=== PATIENT | female | born 1960 | race African-American/Black ===

== ENCOUNTER 2019-08-20 06:12 | Inpatient (IN) | payer BC ==
[2019-08-20] VITALS (11 sets, daily range): BP systolic 118–164; BP diastolic 67–99
[~2019-08-20] VITALS: Ht 167.6 cm; Wt 156.5 kg
[2019-08-20] MEDS ORDERED: AMLODIPINE BESY10 MG ORAL (06:26)
[2019-08-20] MEDS ORDERED: LOSARTAN POTAS100 MG ORAL (06:26)
[2019-08-20] MEDS ORDERED: LIPITOR80 MG ORAL (06:26)
--- NOTE | 2019-08-20 06:39 | Emergency Room Report ---
History of Present Illness General Chief Complaint: Abdominal Pain Source: Patient Present Illness HPI Patient presents with complaints of mid abdominal pain patient reports that since Saturday she has had multiple episodes of vomiting also reports that she has not had a bowel movement since Saturday denies any chest pain or shortness of breath patient reports that she has double hernias And feels that they are now more warm and tender to touch Denies any recent travel denies any rash pain is 5 out of 10 diffusely throughout the abdomen Allergies: Coded Allergies: CODEINE (Verified Allergy, Unknown, 08/20/19) Patient History Past Medical History: see triage record Reviewed Nursing Documentation: PMH: Agreed; PSxH: Agreed Nursing Documentation-PMH Hx Cardiac Problems: Yes Hx Hypertension: Yes Hx COPD: Yes - hx of P.E Hx Diabetes: Yes Hx Gastrointestinal Problems: Yes - hernia x 2 Review of Systems All Other Systems: negative except mentioned in HPI Physical Exam Vital Signs Date Time Temp Pulse Resp B/P (MAP) Pulse Ox O2 Delivery O2 Flow Rate FiO2 08/20/19 06:17 98.1 87 18 163/99 (120) 98 Room Air Sp02 EP Interpretation: reviewed, normal General Appearance: no apparent distress - However with trying to sit or move she has increased pain Head: normocephalic, atraumatic Eyes: bilateral eye PERRL, bilateral eye EOMI ENT: EOM grossly intact Neck: supple Respiratory: lungs clear, no respiratory distress Cardiovascular #1: regular rate, rhythm Gastrointestinal: other - Patient has a mid abdominal palpable hernia it does feel firm, also has umbilical hernia which is tender to touch and was not able to be fully reducible Genitourinary: no CVA tenderness Musculoskeletal: normal inspection Neurologic: alert, oriented x3 Skin: no rash Lymphatic: normal inspection Medical Decision Making Diagnostic Impression: Primary Impression: Small bowel obstruction ER Course Multiple differentials include but not limited to cholecystitis, bowel obstruction, ileus entertained Patient's clinical exam is concerning for possible bowel obstruction secondary to incarcerated hernia Patient was started on extensive blood work and imaging CT does reveal concerning findings of small bowel obstruction Patient has not thus far vomited in the emergency room Further hydration is provided pain medication Patient is admitted requiring emergency inpatient care 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 and 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 are 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 contacted Labs Test 08/20/19 07:30 08/21/19 05:20 White Blood Count 11.2 K/UL (4.8-10.8) 8.7 K/UL (4.8-10.8) Red Blood Count 6.61 M/UL (4.20-5.40) 6.07 M/UL (4.20-5.40) Hemoglobin 14.3 G/DL (12.0-16.0) 13.5 G/DL (12.0-16.0) Hematocrit 45.5 % (37.0-47.0) 42.8 % (37.0-47.0) Mean Corpuscular Volume 69 FL (80-99) 70 FL (80-99) Mean Corpuscular Hemoglobin 21.6 PG (27.0-31.0) 22.2 PG (27.0-31.0) Mean Corpuscular Hemoglobin Concent 31.4 G/DL (32.0-36.0) 31.6 G/DL (32.0-36.0) Red Cell Distribution Width 12.6 % (11.6-14.8) 12.6 % (11.6-14.8) Platelet Count 234 K/UL (150-450) 190 K/UL (150-450) Mean Platelet Volume 8.7 FL (6.5-10.1) 8.2 FL (6.5-10.1) Neutrophils (%) (Auto) 71.3 % (45.0-75.0) 82.2 % (45.0-75.0) Lymphocytes (%) (Auto) 20.5 % (20.0-45.0) 7.9 % (20.0-45.0) Monocytes (%) (Auto) 7.7 % (1.0-10.0) 9.2 % (1.0-10.0) Eosinophils (%) (Auto) 0.1 % (0.0-3.0) 0.0 % (0.0-3.0) Basophils (%) (Auto) 0.4 % (0.0-2.0) 0.7 % (0.0-2.0) Prothrombin Time 10.0 SEC (9.30-11.50) Prothromb Time International Ratio 0.9 (0.9-1.1) Activated Partial Thromboplast Time 25 SEC (23-33) 24 SEC (23-33) Urine Color Yellow Urine Appearance Clear Urine pH 6 (4.5-8.0) Urine Specific [place] 1.015 (1.005-1.035) Urine Protein 3+ (NEGATIVE) Urine Glucose (UA) Negative (NEGATIVE) Urine Ketones 1+ (NEGATIVE) Urine Blood Negative (NEGATIVE) Urine Nitrite Negative (NEGATIVE) Urine Bilirubin Negative (NEGATIVE) Urine Urobilinogen Normal MG/DL (0.0-1.0) Urine Leukocyte Esterase Negative (NEGATIVE) Urine RBC 2-4 /HPF (0 - 2) Urine WBC 2-4 /HPF (0 - 2) Urine Squamous Epithelial Cells Many /LPF (NONE/OCC) Urine Amorphous Sediment Moderate /LPF (NONE) Urine Bacteria Few /HPF (NONE) Sodium Level 137 MMOL/L (136-145) 138 MMOL/L (136-145) Potassium Level 4.0 MMOL/L (3.5-5.1) 3.2 MMOL/L (3.5-5.1) Chloride Level 99 MMOL/L (98-107) 100 MMOL/L (98-107) Carbon Dioxide Level 31 MMOL/L (21-32) 24 MMOL/L (21-32) Anion Gap 8 mmol/L (5-15) 14 mmol/L (5-15) Blood Urea Nitrogen 13 mg/dL (7-18) 24 mg/dL (7-18) Creatinine 1.0 MG/DL (0.55-1.30) 2.7 MG/DL (0.55-1.30) Estimat Glomerular Filtration Rate > 60 mL/min (>60) 21.9 mL/min (>60) Glucose Level 159 MG/DL (74-106) 147 MG/DL (74-106) Calcium Level 9.7 MG/DL (8.5-10.1) 8.6 MG/DL (8.5-10.1) Total Bilirubin 0.4 MG/DL (0.2-1.0) 0.9 MG/DL (0.2-1.0) Aspartate Amino Transf (AST/SGOT) 15 U/L (15-37) 21 U/L (15-37) Alanine Aminotransferase (ALT/SGPT) 16 U/L (12-78) 17 U/L (12-78) Alkaline Phosphatase 112 U/L (46-116) 90 U/L (46-116) Troponin I 0.000 ng/mL (0.000-0.056) Total Protein 9.2 G/DL (6.4-8.2) 7.7 G/DL (6.4-8.2) Albumin 3.4 G/DL (3.4-5.0) 3.0 G/DL (3.4-5.0) Globulin 5.8 g/dL 4.7 g/dL Albumin/Globulin Ratio 0.6 (1.0-2.7) 0.6 (1.0-2.7) Lipase 51 U/L (73-393) 92 U/L (73-393) Erythrocyte Sedimentation Rate 18 MM/HR (0-30) Phosphorus Level 4.3 MG/DL (2.5-4.9) Magnesium Level 3.0 MG/DL (1.8-2.4) C-Reactive Protein, Quantitative 13.8 mg/dL (0.00-0.90) Amylase Level 205 U/L (25-115) Rhythm Strip Diag. Results EP Interpretation: yes Rate: 90 Rhythm: NSR, no PVC's, no ectopy CT/MRI/US Diagnostic Results CT/MRI/US Diagnostic Results : Impression CT abdomen pelvisImpression: High-grade small bowel obstruction due to a ventral hernia. Note that this is the more inferior of 2 ventral hernias. The inferior hernia contains 2 small bowel loops, one of which is the obstructed loop. The more cephalad hernia located immediately adjacent contains a loop of small bowel and a knuckle of transverse colon. This is nonobstructive Last Vital Signs Date Time Temp Pulse Resp B/P (MAP) Pulse Ox O2 Delivery O2 Flow Rate FiO2 08/20/19 06:17 98.1 87 18 163/99 (120) 98 Room Air Status: improved Disposition: ADMITTED INPATIENT Condition: Serious Brittany Alaniz DO Aug 20, 2019 06:39
[2019-08-20] MEDS ORDERED: Metoclopramide 10mg/2ml Inj IVP ONE (06:45)
[2019-08-20 07:38] LABS: BASOPHILS % (AUTO) 0.4 % (0.0-2.0); EOSINOPHILS % (AUTO) 0.1 % (0.0-3.0); HEMATOCRIT 45.5 % (37.0-47.0); HEMOGLOBIN 14.3 G/DL (12.0-16.0); LYMPHOCYTES % (AUTO) 20.5 % (20.0-45.0); MEAN CORPUSCULAR VOLUME 69 FL (80-99); MONOCYTES % (AUTO) 7.7 % (1.0-10.0); NEUTROPHILS % (AUTO) 71.3 % (45.0-75.0); PLATELET COUNT 234 K/UL (150-450); RED BLOOD COUNT 6.61 M/UL (4.20-5.40); RED CELL DISTRIBUTION WIDTH 12.6 % (11.6-14.8); WHITE BLOOD COUNT 11.2 K/UL (4.8-10.8)
[2019-08-20 07:47] LABS: ANION GAP 8 mmol/L (5-15); BLOOD UREA NITROGEN 13 mg/dL (7-18); CALCIUM 9.7 MG/DL (8.5-10.1); CARBON DIOXIDE 31 MMOL/L (21-32); CHLORIDE 99 MMOL/L (98-107); SODIUM 137 MMOL/L (136-145)
[2019-08-20 07:51] LABS: ALANINE AMINOTRANSFERASE 16 U/L (12-78); ALBUMIN 3.4 G/DL (3.4-5.0); ALBUMIN/GLOBULIN RATIO 0.6 (1.0-2.7); ALKALINE PHOSPHATASE 112 U/L (46-116); ASPARTATE AMINO TRANSFERASE 15 U/L (15-37); BILIRUBIN,TOTAL 0.4 MG/DL (0.2-1.0)
[2019-08-20 07:52] LABS: INR 0.9 (0.9-1.1)
[2019-08-20 08:20] LABS: APPEARANCE,URINE CLEAR; COLOR,URINE YELLOW; PH,URINE 6 (4.5-8.0); PROTEIN,URINE 3+ (NEGATIVE)
[2019-08-20 08:21] LABS: BILIRUBIN, URINE NEGATIVE (NEGATIVE); GLUCOSE, URINE (UA) NEGATIVE (NEGATIVE); KETONES,URINE 1+ (NEGATIVE); LEUKOCYTE ESTERASE ,URINE NEGATIVE (NEGATIVE); NITRITE,URINE NEGATIVE (NEGATIVE); UROBILINOGEN,URINE NORMAL MG/DL (0.0-1.0)
[2019-08-20] MEDS ORDERED: Morphine Sulfate 4mg/ml Inj (IV USE ONLY) IVP ONE (08:30)
--- NOTE | 2019-08-20 09:48 | Diagnostic Imaging Report ---
Indication: Mid abdominal pain Technique: Spiral acquisitions obtained through the abdomen and pelvis. Patient given oral contrast No IV contrast utilized, per referring physician request.. Multiplanar reconstructions were generated. Total dose length product 1897 mGycm. CTDIvol(s) 35 mGy. Dose reduction achieved using automated exposure control Comparison: None Findings: There are 2 ventral hernias. The more inferior of the 2, which appears to be periumbilical, contains 2 several loops of small bowel. The small bowel leading into one of the contained loops is dilated and the exiting small bowel is nondilated. This loop also contains dilated small bowel within the hernia. The other loop of small bowel within the hernia appears nonobstructed. A second hernia located more cephalad contains transverse colon as well as a separate loop of small bowel, appears to be nonobstructive. Ingested contrast has only traversed a small distance into the duodenum. There is colonic diverticulosis. No evidence of acute diverticulitis. The appendix is normal. No free or loculated intraperitoneal gas or fluid. Distal esophagus, stomach, duodenum are unremarkable. The lack of IV contrast limits assessment of solid organs. The liver, gallbladder, bile ducts, pancreas, spleen, adrenals, kidneys are unremarkable. No retroperitoneal or mesenteric mass or adenopathy. The uterus is markedly enlarged, contains calcifications consistent with degenerated fibroids. No adnexal mass. The bones demonstrate degenerative changes of the lumbosacral junction. The included lung bases demonstrate posterior dependent atelectatic changes. Impression: High-grade small bowel obstruction due to a ventral hernia. Note that this is the more inferior of 2 ventral hernias. The inferior hernia contains 2 small bowel loops, one of which is the obstructed loop. The more cephalad hernia located immediately adjacent contains a loop of small bowel and a knuckle of transverse colon. This is nonobstructive Colonic diverticulosis. No evidence of diverticulitis Enlarged fibroid uterus Incidental findings of degenerative lumbosacral spondylosis, posterior pulmonary dependent atelectatic changes Findings discussed by phone with Dr. Alaniz at the time of interpretation The CT scanner at [facility] is accredited by the [employer] and the scans are performed using protocols designed to limit radiation exposure to as low as reasonably achievable to attain images of sufficient resolution adequate for diagnostic evaluation.
[2019-08-20] MEDS ORDERED: DiphenhydrAMINE 25mg Tab ORAL PRN ×2 (12:30→18:45)
[2019-08-20] MEDS ORDERED: Nitroglycerin Subl 0.4mg tab SL PRN (12:30)
[2019-08-20] MEDS ORDERED: Metoclopramide 10mg/2ml Inj IVP PRN (12:30)
[2019-08-20] MEDS ORDERED: Miralax 17gm pkt ORAL PRN (12:30)
--- NOTE | 2019-08-20 12:42 | Consultation ---
History of Present Illness General Date patient seen: Aug 20, 2019 Chief Complaint: Abdominal Pain Present Illness HPI 59 year old female with hx of HTN, DM, PE, morbid obesity presented to ER with complaints of mid abdominal pain patient and multiple episodes of vomiting since two days ago. She has not had a bowel movement since Saturday. She denied any chest pain or shortness of breath. Allergies: Coded Allergies: CODEINE (Verified Allergy, Unknown, 08/20/19) Medication History Scheduled Atorvastatin (Lipitor), 40 MG ORAL BEDTIME, (Reported) Losartan Potassium (Losartan Potassium), 100 MG ORAL DAILY, (Reported) Scheduled PRN Amlodipine Besylate* (Amlodipine Besylate*), 10 MG ORAL DAILY PRN for For High Blood Pressure, (Reported) Patient History Healthcare decision maker Resuscitation status Advanced Directive on File Yes Past Medical/Surgical History Past Medical/Surgical History: (1) Diabetes mellitus (2) Hx pulmonary embolism (3) History of hypertension Review of Systems All Other Systems: negative except mentioned in HPI Physical Exam General Appearance: WD/WN Lines, tubes and drains: peripheral HEENT: normocephalic Neck: non-tender, normal alignment Respiratory/Chest: chest wall non-tender, lungs clear, normal breath sounds Breasts: no masses Cardiovascular/Chest: normal peripheral pulses, normal rate Abdomen: normal bowel sounds Genitourinary/Rectal: normal genital exam Extremities: normal range of motion Skin Exam: normal pigmentation 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 normal Last 24 Hour Vital Signs Date Time Temp Pulse Resp B/P (MAP) Pulse Ox O2 Delivery O2 Flow Rate FiO2 08/20/19 10:50 98.1 89 21 148/86 98 Room Air 08/20/19 10:29 98.1 89 21 148/86 98 Room Air 08/20/19 08:39 98.1 89 21 164/98 99 Room Air 08/20/19 06:30 98.1 87 18 163/99 98 Room Air 08/20/19 06:30 87 18 Room Air 08/20/19 06:17 98.1 87 18 163/99 (120) 98 Room Air Intake and Output 08/19/19 08/20/19 19:00 07:00 Intake Total 0 ml Balance 0 ml Intake Oral 0 ml # Voids 1 Laboratory Tests Test 08/20/19 07:30 White Blood Count 11.2 K/UL (4.8-10.8) H Red Blood Count 6.61 M/UL (4.20-5.40) H Hemoglobin 14.3 G/DL (12.0-16.0) Hematocrit 45.5 % (37.0-47.0) Mean Corpuscular Volume 69 FL (80-99) L Mean Corpuscular Hemoglobin 21.6 PG (27.0-31.0) L Mean Corpuscular Hemoglobin Concent 31.4 G/DL (32.0-36.0) L Red Cell Distribution Width 12.6 % (11.6-14.8) Platelet Count 234 K/UL (150-450) Mean Platelet Volume 8.7 FL (6.5-10.1) Neutrophils (%) (Auto) 71.3 % (45.0-75.0) Lymphocytes (%) (Auto) 20.5 % (20.0-45.0) Monocytes (%) (Auto) 7.7 % (1.0-10.0) Eosinophils (%) (Auto) 0.1 % (0.0-3.0) Basophils (%) (Auto) 0.4 % (0.0-2.0) Prothrombin Time 10.0 SEC (9.30-11.50) Prothromb Time International Ratio 0.9 (0.9-1.1) Activated Partial Thromboplast Time 25 SEC (23-33) Urine Color Yellow Urine Appearance Clear Urine pH 6 (4.5-8.0) Urine Specific [place] 1.015 (1.005-1.035) Urine Protein 3+ (NEGATIVE) H Urine Glucose (UA) Negative (NEGATIVE) Urine Ketones 1+ (NEGATIVE) H Urine Blood Negative (NEGATIVE) Urine Nitrite Negative (NEGATIVE) Urine Bilirubin Negative (NEGATIVE) Urine Urobilinogen Normal MG/DL (0.0-1.0) Urine Leukocyte Esterase Negative (NEGATIVE) Urine RBC 2-4 /HPF (0 - 2) H Urine WBC 2-4 /HPF (0 - 2) Urine Squamous Epithelial Cells Many /LPF (NONE/OCC) H Urine Amorphous Sediment Moderate /LPF (NONE) H Urine Bacteria Few /HPF (NONE) Sodium Level 137 MMOL/L (136-145) Potassium Level 4.0 MMOL/L (3.5-5.1) Chloride Level 99 MMOL/L (98-107) Carbon Dioxide Level 31 MMOL/L (21-32) Anion Gap 8 mmol/L (5-15) Blood Urea Nitrogen 13 mg/dL (7-18) Creatinine 1.0 MG/DL (0.55-1.30) Estimat Glomerular Filtration Rate > 60 mL/min (>60) Glucose Level 159 MG/DL (74-106) H Calcium Level 9.7 MG/DL (8.5-10.1) Total Bilirubin 0.4 MG/DL (0.2-1.0) Aspartate Amino Transf (AST/SGOT) 15 U/L (15-37) Alanine Aminotransferase (ALT/SGPT) 16 U/L (12-78) Alkaline Phosphatase 112 U/L (46-116) Troponin I 0.000 ng/mL (0.000-0.056) Total Protein 9.2 G/DL (6.4-8.2) H Albumin 3.4 G/DL (3.4-5.0) Globulin 5.8 g/dL Albumin/Globulin Ratio 0.6 (1.0-2.7) L Lipase 51 U/L (73-393) L Height (Feet): 5 Height (Inches): 8.00 Weight (Pounds): 350 Medications Current Medications Medications (Trade) Dose Ordered Sig/Juan Route PRN Reason Start Time Stop Time Status Last Admin Dose Admin Amlodipine Besylate (Norvasc) 10 mg DAILY PRN ORAL For High Blood Pressure 08/20/19 12:30 09/19/19 12:29 UNV Atorvastatin Calcium (Lipitor) 40 mg BEDTIME ORAL 08/20/19 21:00 09/19/19 20:59 Barium Sulfate (Readi-Cat 2) 450 ml NOW PRN ORAL Radiology Procedure 08/20/19 06:45 08/22/19 06:35 Losartan Potassium (Cozaar) 100 mg DAILY ORAL 08/21/19 09:00 09/20/19 08:59 Assessment/Plan Problem List: (1) Ileus ICD Codes: K56.7 - Ileus, unspecified SNOMED: 458893176 (2) Refractory nausea and vomiting ICD Codes: R11.2 - Nausea with vomiting, unspecified SNOMED: 50938671 (3) Hx pulmonary embolism ICD Codes: Z86.711 - Personal history of pulmonary embolism SNOMED: 464541771 (4) History of hypertension ICD Codes: Z86.79 - Personal history of other diseases of the circulatory system SNOMED: 968685868 (5) Diabetes mellitus ICD Codes: E11.9 - Type 2 diabetes mellitus without complications SNOMED: 47228773 Assessment/Plan: NPO iv fluids Surgery consult symptomatic treatment dvt prophylaxis dopple of legs b/o hx of PE sliding scale Jamil Green MD Aug 20, 2019 12:42
[2019-08-20] MEDS: D5 1/2NS 1,000 ML IV SCH (12:47)
[2019-08-20] MEDS ORDERED: Morphine Sulfate 4mg/ml Inj (IV USE ONLY) IVP PRN (13:30)
[2019-08-20] MEDS ORDERED: Morphine Sulfate 2mg/ml Inj(IV/IM USE ONLY) IVP PRN (13:30)
[2019-08-20] MEDS ORDERED: Bacitracin 50000 Units Vial ONE (15:25)
[2019-08-20] MEDS ORDERED: LR 1000ml 1,000 ML IVLG SCH (15:26)
--- NOTE | 2019-08-20 15:27 | Anethesia Preoperative Eval ---
Anesthesia Pre-op PMH/ROS General Date of Evaluation: Aug 20, 2019 Time of Evaluation: 15:36 Anesthesiologist: Trace ASA Score: ASA 3 Mallampati Score Class I : Soft palate, uvula, fauces, pillars visible Class II: Soft palate, uvula, fauces visible Class III: Soft palate, base of uvula visible Class IV: Only hard plate visible Mallampati Classification: Class III Surgeon: Magda Diagnosis: Abd Pain Surgical Procedure: Laparoscopic Ventral Hernia Repair Anesthesia History: none Family History: no anesthesia problems Allergies: Coded Allergies: CODEINE (Verified Allergy, Unknown, 08/20/19) Medications: see eMAR Patient NPO?: Yes NPO Date: Aug 20, 2019 NPO Time: 0000 Past Medical History Cardiovascular: Reports: HTN Pulmonary: Reports: other - PE Endocrine: Reports: DM Other: obesity - Morbid BMI 58 Anesthesia Pre-op Phys. Exam Physician Exam Last Vital Signs Date Time Temp Pulse Resp B/P (MAP) Pulse Ox O2 Delivery O2 Flow Rate FiO2 08/20/19 14:16 98.1 08/20/19 12:46 89 148/86 08/20/19 12:41 Room Air 08/20/19 10:50 21 98 Constitutional: NAD Neurologic: CN 2-12 intact Cardiovascular: RRR Respiratory: CTA Gastrointestinal: S/NT/ND Airway Exam Mallampati Score: Class III MO: limited ROM: limited Teeth: missing Dentures: upper, lower Anesthesia Pre-op A/P Labs Hematology Test 08/20/19 07:30 White Blood Count 11.2 K/UL (4.8-10.8) H Red Blood Count 6.61 M/UL (4.20-5.40) H Hemoglobin 14.3 G/DL (12.0-16.0) Hematocrit 45.5 % (37.0-47.0) Mean Corpuscular Volume 69 FL (80-99) L Mean Corpuscular Hemoglobin 21.6 PG (27.0-31.0) L Mean Corpuscular Hemoglobin Concent 31.4 G/DL (32.0-36.0) L Red Cell Distribution Width 12.6 % (11.6-14.8) Platelet Count 234 K/UL (150-450) Mean Platelet Volume 8.7 FL (6.5-10.1) Neutrophils (%) (Auto) 71.3 % (45.0-75.0) Lymphocytes (%) (Auto) 20.5 % (20.0-45.0) Monocytes (%) (Auto) 7.7 % (1.0-10.0) Eosinophils (%) (Auto) 0.1 % (0.0-3.0) Basophils (%) (Auto) 0.4 % (0.0-2.0) Coagulation Test 08/20/19 07:30 Prothrombin Time 10.0 SEC (9.30-11.50) Prothromb Time International Ratio 0.9 (0.9-1.1) Activated Partial Thromboplast Time 25 SEC (23-33) Chemistry Test 08/20/19 07:30 Sodium Level 137 MMOL/L (136-145) Potassium Level 4.0 MMOL/L (3.5-5.1) Chloride Level 99 MMOL/L (98-107) Carbon Dioxide Level 31 MMOL/L (21-32) Anion Gap 8 mmol/L (5-15) Blood Urea Nitrogen 13 mg/dL (7-18) Creatinine 1.0 MG/DL (0.55-1.30) Estimat Glomerular Filtration Rate > 60 mL/min (>60) Glucose Level 159 MG/DL (74-106) H Calcium Level 9.7 MG/DL (8.5-10.1) Total Bilirubin 0.4 MG/DL (0.2-1.0) Aspartate Amino Transf (AST/SGOT) 15 U/L (15-37) Alanine Aminotransferase (ALT/SGPT) 16 U/L (12-78) Alkaline Phosphatase 112 U/L (46-116) Troponin I 0.000 ng/mL (0.000-0.056) Total Protein 9.2 G/DL (6.4-8.2) H Albumin 3.4 G/DL (3.4-5.0) Globulin 5.8 g/dL Albumin/Globulin Ratio 0.6 (1.0-2.7) L Lipase 51 U/L (73-393) L Risk Assessment & Plan Assessment: ASA 3E Plan: GA, SED, GlideScope Go Status Change Before Surgery: No Pre-Antibiotics Dru Grams , 3.375 Grams Zosyn IV Given Within 1 Hr of Incision: Yes Time Given: 16:01 Issa Woodward MD Aug 20, 2019 15:27
[2019-08-20] MEDS ORDERED: LORazepam Inj 2mg/ml 1ml IV PRN (15:30)
[2019-08-20] MEDS ORDERED: Midazolam 2mg/2ml Inj IVP PRN (15:30)
[2019-08-20] MEDS ORDERED: DiphenhydrAMINE 50mg/ml Inj IVP PRN (15:30)
[2019-08-20] MEDS ORDERED: Propofol 200mg/20ml IV ONE (15:30)
[2019-08-20] MEDS ORDERED: Atropine Sulfate 0.4mg/ml inj IVP PRN (15:30)
[2019-08-20] MEDS ORDERED: Meperidine 25mg/0.5ml Inj (FOR RIGORS ONLY) IV PRN (15:30)
[2019-08-20] MEDS ORDERED: Sterile Water Irrig 1000ml IRRIG ONE (15:30)
[2019-08-20] MEDS ORDERED: Acetaminophen (Non formulary) 100 ML IV ONE (15:30)
[2019-08-20] MEDS ORDERED: fentaNYL 100 mcg/2 mL IV PRN (15:30)
[2019-08-20] MEDS ORDERED: Labetalol 5mg/ml 20ml vial IV PRN (15:30)
[2019-08-20] MEDS ORDERED: LR 1000ml ONE (15:30)
--- NOTE | 2019-08-20 15:30 | Diagnostic Imaging Report ---
Indication: Leg pain Technique: Grayscale and duplex images of the bilateral lower extremity veins Comparison: None Findings: Exam is somewhat limited due to patient body habitus; visualization of the femoral vein was not optimal. Bilaterally, grayscale and duplex images demonstrate no evidence of intraluminal thrombus. Normal phasic Doppler waveforms, demonstrating normal augmentation response and no evidence of valvular insufficiency. Greater saphenous vein(s) and tibial veins are patent. Normal compressibility. Impression: Negative for evidence of lower extremity deep venous thrombosis bilaterally Somewhat limited exam, as described
--- NOTE | 2019-08-20 15:42 | Consultation ---
History of Present Illness General Date patient seen: Aug 20, 2019 Reason for Hospitalization: Abdominal Pain Present Illness HPI This is a very pleasant 59 year old female with history of diabetes hypertension severe morbid obesity BMI 56 who presented to [facility] complaining of worsening abdominal pain nausea and emesis for 2 days. Patient states she was well 3 days ago but 2 days ago was at work and began to develop normal discomfort followed by nausea and multiple bouts of nonbloody emesis. She has been unwell since and came in for evaluation at which time was identified to have leukocytosis and CT scan consistent with incarcerated ventral hernia causing high-grade bowel obstruction. Patient was admitted for further care and management surgery was called to evaluate and assist with care. Patient seen, [place], chart reviewed. Patient states that she was having severe 8 out of 10-10 out of 10 pain but was recently given narcotic pain medication and feels little bit more comfortable currently 6 out of 10. no prior episodes. no bm. no flatus for 2 days Allergies: Coded Allergies: CODEINE (Verified Allergy, Unknown, 08/20/19) Medication History Scheduled Atorvastatin (Lipitor), 40 MG ORAL BEDTIME, (Reported) Losartan Potassium (Losartan Potassium), 100 MG ORAL DAILY, (Reported) Scheduled PRN Amlodipine Besylate* (Amlodipine Besylate*), 10 MG ORAL DAILY PRN for For High Blood Pressure, (Reported) Patient History History Provided By: Patient Healthcare decision maker sister: Meenakshi: [phone] Resuscitation status Full Code Advanced Directive on File Yes Past Medical/Surgical History Past Medical/Surgical History: (1) Incarcerated ventral hernia (2) Small bowel obstruction (3) Diabetes mellitus (4) History of hypertension (5) Hx pulmonary embolism (6) Ileus (7) Refractory nausea and vomiting Review of Systems Review of Symptoms General ROS: no weight loss or fever Psychological ROS: no depression or mood changes, no memory loss Ophthalmic ROS: no visual changes or eye irritation ENT ROS: no nasal congestion, hearing loss, dizziness Allergy and Immunology ROS: no allergic symptoms or urticaria Hematological and Lymphatic ROS: no swollen glands, unusual bleeding or bruising Endocrine ROS: no polyuria, polydipsia, weight changes, temperature intolerance Respiratory ROS: no cough, shortness of breath, or wheezing Cardiovascular ROS: no chest pain or dyspnea on exertion Gastrointestinal ROS: abdominal pain, no bright red blood in stool. Musculoskeletal ROS: no myalgias or arthralgias Neurological ROS: no TIA or stroke symptoms Dermatological ROS: no new or changing skin lesions, rashes or pruritis Physical Exam Physical Exam General appearance: alert, cooperative, no distress, appears stated age Head: Normocephalic, without obvious abnormality, atraumatic Eyes: conjunctivae/corneas clear. PERRL, EOM's intact. Fundi benign Throat: Lips, mucosa, and tongue normal. Teeth and gums normal Neck: supple, symmetrical, trachea midline, no adenopathy, thyroid: not enlarged, symmetric, no tenderness/mass/nodules, no carotid bruit and no JVD Lungs: clear to auscultation bilaterally Heart: regular rate and rhythm, S1, S2 normal, no murmur, click, rub or gallop Abdomen: soft, tender. decreased bowel sounds, distended, non reducible ventral hernia Extremities: extremities normal, atraumatic, no cyanosis or edema Pulses: 2+ and symmetric Skin: Skin color, texture, turgor normal. No rashes or lesions Neurologic: Grossly normal Last 24 Hour Vital Signs Date Time Temp Pulse Resp B/P (MAP) Pulse Ox O2 Delivery O2 Flow Rate FiO2 08/20/19 14:16 98.1 08/20/19 12:46 89 148/86 08/20/19 12:41 Room Air 08/20/19 10:50 98.1 89 21 148/86 98 Room Air 08/20/19 10:29 98.1 89 21 148/86 98 Room Air 08/20/19 08:39 98.1 89 21 164/98 99 Room Air 08/20/19 06:30 98.1 87 18 163/99 98 Room Air 08/20/19 06:30 87 18 Room Air 08/20/19 06:17 98.1 87 18 163/99 (120) 98 Room Air Intake and Output 08/19/19 08/20/19 19:00 07:00 Intake Total 0 ml Balance 0 ml Intake Oral 0 ml # Voids 1 Laboratory Tests Test 08/20/19 07:30 White Blood Count 11.2 K/UL (4.8-10.8) H Red Blood Count 6.61 M/UL (4.20-5.40) H Hemoglobin 14.3 G/DL (12.0-16.0) Hematocrit 45.5 % (37.0-47.0) Mean Corpuscular Volume 69 FL (80-99) L Mean Corpuscular Hemoglobin 21.6 PG (27.0-31.0) L Mean Corpuscular Hemoglobin Concent 31.4 G/DL (32.0-36.0) L Red Cell Distribution Width 12.6 % (11.6-14.8) Platelet Count 234 K/UL (150-450) Mean Platelet Volume 8.7 FL (6.5-10.1) Neutrophils (%) (Auto) 71.3 % (45.0-75.0) Lymphocytes (%) (Auto) 20.5 % (20.0-45.0) Monocytes (%) (Auto) 7.7 % (1.0-10.0) Eosinophils (%) (Auto) 0.1 % (0.0-3.0) Basophils (%) (Auto) 0.4 % (0.0-2.0) Prothrombin Time 10.0 SEC (9.30-11.50) Prothromb Time International Ratio 0.9 (0.9-1.1) Activated Partial Thromboplast Time 25 SEC (23-33) Urine Color Yellow Urine Appearance Clear Urine pH 6 (4.5-8.0) Urine Specific [place] 1.015 (1.005-1.035) Urine Protein 3+ (NEGATIVE) H Urine Glucose (UA) Negative (NEGATIVE) Urine Ketones 1+ (NEGATIVE) H Urine Blood Negative (NEGATIVE) Urine Nitrite Negative (NEGATIVE) Urine Bilirubin Negative (NEGATIVE) Urine Urobilinogen Normal MG/DL (0.0-1.0) Urine Leukocyte Esterase Negative (NEGATIVE) Urine RBC 2-4 /HPF (0 - 2) H Urine WBC 2-4 /HPF (0 - 2) Urine Squamous Epithelial Cells Many /LPF (NONE/OCC) H Urine Amorphous Sediment Moderate /LPF (NONE) H Urine Bacteria Few /HPF (NONE) Sodium Level 137 MMOL/L (136-145) Potassium Level 4.0 MMOL/L (3.5-5.1) Chloride Level 99 MMOL/L (98-107) Carbon Dioxide Level 31 MMOL/L (21-32) Anion Gap 8 mmol/L (5-15) Blood Urea Nitrogen 13 mg/dL (7-18) Creatinine 1.0 MG/DL (0.55-1.30) Estimat Glomerular Filtration Rate > 60 mL/min (>60) Glucose Level 159 MG/DL (74-106) H Calcium Level 9.7 MG/DL (8.5-10.1) Total Bilirubin 0.4 MG/DL (0.2-1.0) Aspartate Amino Transf (AST/SGOT) 15 U/L (15-37) Alanine Aminotransferase (ALT/SGPT) 16 U/L (12-78) Alkaline Phosphatase 112 U/L (46-116) Troponin I 0.000 ng/mL (0.000-0.056) Total Protein 9.2 G/DL (6.4-8.2) H Albumin 3.4 G/DL (3.4-5.0) Globulin 5.8 g/dL Albumin/Globulin Ratio 0.6 (1.0-2.7) L Lipase 51 U/L (73-393) L Height (Feet): 5 Height (Inches): 6.00 Weight (Pounds): 347 Medications Current Medications Medications (Trade) Dose Ordered Sig/Juan Route PRN Reason Start Time Stop Time Status Last Admin Dose Admin Acetaminophen 100 ml @ 400 mls/hr NOW ONCE IV 08/20/19 15:30 08/20/19 15:44 Acetaminophen (Tylenol) 650 mg Q4H PRN ORAL fever 08/20/19 12:30 09/19/19 12:29 Al Hydroxide/Mg Hydroxide (Mylanta) 15 ml Q1H PRN ORAL gi upset 08/20/19 15:30 08/20/19 23:59 Amlodipine Besylate (Norvasc) 10 mg DAILY ORAL 08/20/19 12:25 09/19/19 12:24 08/20/19 12:46 Atorvastatin Calcium (Lipitor) 40 mg BEDTIME ORAL 08/20/19 21:00 09/19/19 20:59 Atropine Sulfate (Atropine 0.4mg/ ml) 0.5 mg Q5M PRN IVP HR<40 08/20/19 15:30 08/20/19 23:59 Barium Sulfate (Readi-Cat 2) 450 ml NOW PRN ORAL Radiology Procedure 08/20/19 06:45 08/22/19 06:35 Dextrose (Dextrose 50%) 25 ml Q30M PRN IV Hypoglycemia 08/20/19 12:45 09/19/19 12:44 Dextrose (Dextrose 50%) 50 ml Q30M PRN IV Hypoglycemia 08/20/19 12:45 09/19/19 12:44 Dextrose/Sodium Chloride 1,000 ml @ 75 mls/hr [id number] IV 08/20/19 12:23 09/19/19 12:22 08/20/19 12:47 Diphenhydramine HCl (Benadryl) 25 mg Q15M PRN IVP Itching 08/20/19 15:30 08/20/19 23:59 Diphenhydramine HCl (Benadryl) 25 mg Q6H PRN ORAL Itching/Pruritis 08/20/19 12:30 09/19/19 12:29 Fentanyl Citrate (Sublimaze 100 mcg/2 mL) 25 mcg Q10M PRN IV Moderate Pain (Pain Scale 4-6) 08/20/19 15:30 08/20/19 23:59 Heparin Sodium (Porcine) (Heparin 5000 units/ml) 5,000 units EVERY 12 HOURS SUBQ 08/20/19 21:00 10/04/19 20:59 Hydralazine HCl (Apresoline) 5 mg Q30M PRN IV SBP>160 / DBP>90 08/20/19 15:30 08/20/19 23:59 Labetalol HCl (Normodyne) 5 mg Q10M PRN IV SBP>160 / DBP>90 08/20/19 15:30 08/20/19 23:59 Lactated Ringer's 1,000 ml @ 10 mls/hr Q24H IVLG 08/20/19 15:26 08/20/19 17:25 Lorazepam (Ativan 2mg/ml 1ml) 1 mg Q15M PRN IV For Anxiety 08/20/19 15:30 08/20/19 23:59 Losartan Potassium (Cozaar) 100 mg Q24H ORAL 08/20/19 20:00 09/19/19 19:59 Meperidine HCl (Demerol) 25 mg Q5M PRN IV SHIVERING.MAY REPEAT X 1 08/20/19 15:30 08/20/19 23:59 Metoclopramide HCl (Reglan) 10 mg Q6H PRN IVP servere nauasea 08/20/19 12:30 09/19/19 12:29 Midazolam HCl (Versed 2mg/2ml vial) 1 mg Q15M PRN IVP For Anxiety 08/20/19 15:30 08/20/19 23:59 Morphine Sulfate (Morphine Sulfate) 2 mg Q4H PRN IVP PAIN 4-6 08/20/19 13:30 08/27/19 13:29 08/20/19 13:46 Morphine Sulfate (Morphine Sulfate) 4 mg Q4H PRN IVP Severe Breakthru Pain (>7) 08/20/19 13:30 08/27/19 13:29 Nitroglycerin (Ntg) 0.4 mg Q5M X 3 DOSES PRN SL Prn Chest Pain 08/20/19 12:30 09/19/19 12:29 Ondansetron HCl (Zofran) 4 mg Q1H PRN IVP Nausea & Vomiting 08/20/19 15:30 08/20/19 23:59 Ondansetron HCl (Zofran) 4 mg Q6H PRN IVP Nausea & Vomiting 08/20/19 12:30 09/19/19 12:29 Pantoprazole (Protonix) 40 mg DAILY IV 08/21/19 09:00 09/20/19 08:59 Piperacillin Sod/ Tazobactam Sod 3.375 gm/Sodium Chloride 110 ml @ 27.5 mls/hr Q8H IVPB 08/20/19 16:00 08/27/19 15:59 Polyethylene Glycol (Miralax) 17 gm HSPRN PRN ORAL Constipation 08/20/19 12:30 09/19/19 12:29 Promethazine HCl (Phenergan) 25 mg Q6H PRN IM Refractory N/V 08/20/19 12:30 08/25/19 12:29 Temazepam (Restoril) 15 mg HSPRN PRN ORAL Insomnia 08/20/19 12:30 08/27/19 12:29 Assessment/Plan Problem List: (1) Incarcerated ventral hernia Assessment & Plan: Patient with high-grade small bowel obstruction secondary to incarcerated ventral hernia. Not able to reduce at bedside. Tender CT reviewed exam reviewed Patient is very obese with 2 hernias one causing high-grade obstruction. The 2 hernias are well connected to each other as they are overlapping with just a short bridge. Unfortunately given the patient's size current findings and overall health condition this is a very concerning and surgical emergency as well. I had a long discussion with the patient the bedside regards to these findings. I explained to her and reviewed the findings of the high-grade obstruction secondary to the hernia and the second hernia with significant bowel contents as well that is adjoining to this smaller hernia with obstruction. I explained to the patient possible intervention techniques including laparoscopic and open surgery. I discussed mesh placement possible component separation possible soft tissue rearrangement for closure given size of the defect. I explained the patient there is a probability as well that given her sheer size as well as the size of the defect that it may not be possible to considerably close at this time and she may have one large hernia. I explained to her the risk of potential bowel viability and may be the need for bowel resection. I explained to her the high risk nature of the procedure given her size medical condition comorbidities and the potential risk benefits and alternatives surgery as well as the potential postoperative complications including high likelihood of potential wound infection as well as wound complications. Patient expressed understanding consent was obtained OR team was called and patient was urgently taken to the operating room for care ICD Codes: K43.6 - Other and unspecified ventral hernia with obstruction, without gangrene SNOMED: [id number] (2) Small bowel obstruction Assessment & Plan: There are 2 ventral hernias. The more inferior of the 2, which appears to be periumbilical, contains 2 several loops of small bowel. The small bowel leading into one of the contained loops is dilated and the exiting small bowel is nondilated. This loop also contains dilated small bowel within the hernia. The other loop of small bowel within the hernia appears nonobstructed. A second hernia located more cephalad contains transverse colon as well as a separate loop of small bowel, appears to be nonobstructive. Ingested contrast has only traversed a small distance into the duodenum. There is colonic diverticulosis. No evidence of acute diverticulitis. The appendix is normal. No free or loculated intraperitoneal gas or fluid. Distal esophagus, stomach, duodenum are unremarkable. The lack of IV contrast limits assessment of solid organs. The liver, gallbladder, bile ducts, pancreas, spleen, adrenals, kidneys are unremarkable. No retroperitoneal or mesenteric mass or adenopathy. The uterus is markedly enlarged, contains calcifications consistent with degenerated fibroids. No adnexal mass. The bones demonstrate degenerative changes of the lumbosacral junction. The included lung bases demonstrate posterior dependent atelectatic changes. Impression: High-grade small bowel obstruction due to a ventral hernia. Note that this is the more inferior of 2 ventral hernias. The inferior hernia contains 2 small bowel loops, one of which is the obstructed loop. The more cephalad hernia located immediately adjacent contains a loop of small bowel and a knuckle of transverse colon. This is nonobstructive Colonic diverticulosis. No evidence of diverticulitis Enlarged fibroid uterus Incidental findings of degenerative lumbosacral spondylosis, posterior pulmonary dependent atelectatic changes ICD Codes: K56.609 - Unspecified intestinal obstruction, unspecified as to partial versus complete obstruction SNOMED: [id number] Ash Man Aug 20, 2019 15:42
[2019-08-20] MEDS ORDERED: fentaNYL 100 mcg/2 mL IV ONE (15:43)
[2019-08-20] MEDS ORDERED: Midazolam 2mg/2ml Inj ONE (15:43)
--- NOTE | 2019-08-20 15:43 | Pre-Procedure Note/Attestation ---
Pre-Procedure Note/Attestation Complete Prior to Procedure Procedure Narrative: Laparoscopic possible open incarcerated ventral hernia repair with mesh possible bowel resection Indications for Procedure Pre-Operative Diagnosis: Incarcerated ventral hernia with high-grade small bowel obstruction Attestation I attest that I discussed the nature of the procedure; its benefits; risks and complications; and alternatives (and the risks and benefits of such alternatives ), prior to the procedure, with the patient (or the patient's legal parts counter representative). I attest that, if there was a reasonable possibility of needing a blood transfusion, the patient (or the patient's legal parts counter representative) was given the [place] [employer] standardized written summary, pursuant to the [place] Blood Safety Act ([place] Health and Safety Code # 1645, as amended). I attest that I re-evaluated the patient just prior to the surgery and that there has been no change in the patient's H&P, except as documented below: Ash Man Aug 20, 2019 15:43
[2019-08-20] MEDS ORDERED: Lidocaine 1% MPF 10mg/ml 5ml ONE (15:47)
[2019-08-20] MEDS ORDERED: Sodium Chloride 10ml vial INJ ONE (15:47)
[2019-08-20] MEDS: Piperacillin/Tazobactam 3.375 GM in NS 110 ML IVPB SCH (16:00)
[2019-08-20] MEDS ORDERED: NS Irrig 1000ml IRRIG ONE (16:27)
[2019-08-20] MEDS ORDERED: ePHEDrine 50mg/ml Inj ONE (16:39)
[2019-08-20] MEDS ORDERED: Neostigmine 1mg/ml 10ml Inj ONE (17:14)
[2019-08-20] MEDS ORDERED: Glycopyrrolate 0.2mg/ml 1ml Vial ONE (17:14)
[2019-08-20] MEDS ORDERED: Rocuronium Bromide 50mg/5ml Inj IV ONE (17:50)
--- NOTE | 2019-08-20 18:23 | Immediate Post-Op Evaluation ---
Immediate Post-Op Evalulation Immediate Post-Op Evalulation Procedure: Laparoscopic Ventral Hernia Repair Date of Evaluation: Aug 20, 2019 Time of Evaluation: 18:33 IV Fluids: 1200 LR Blood Products: 0 Estimated Blood Loss: 50 Urinary Output: 0 Blood Pressure Systolic: 140 Blood Pressure Diastolic: 82 Pulse Rate: 93 Respiratory Rate: 16 O2 Sat by Pulse Oximetry: 97 Temperature (Fahrenheit): 97.8 Pain Score (1-10): 2 Nausea: No Vomiting: No Complications 0 Patient Status: awake, reacts, patent, extubated, none Hydration Status: adequate Dru Grams , 3.375 Grams Zosyn IV Given Within 1 Hr of Incision: Yes Time Given: 16:01 Issa Woodward MD Aug 20, 2019 18:23
--- NOTE | 2019-08-20 18:43 | Brief Operative Note ---
Immediate Post Operative Note Operative Note Pre-op Diagnosis: Incarcerated ventral hernia with high-grade small bowel obstruction Severe morbid obesity Procedure: 1 laparoscopic incarcerated ventral hernia repair with mesh 2 laparoscopic lysis of adhesions extensive 3 laparoscopic separation of components posterior 4 modifier 22 Post-op Diagnosis: 1 incarcerated ventral hernia with high-grade small bowel obstruction 2 incarcerated ventral hernia with omentum and seemingly portion of the transverse colon 3 extensive intra-abdominal adhesions around hernia site Surgeon: Ash Man MD Anesthesiologist: Iram Woodward Anesthesia: general, local Specimen: none Complications: none Fluids: Please see anesthesia records Estimated Blood Loss: minimal Drains: none Implant(s) used?: Yes Ash Man Aug 20, 2019 18:43
[2019-08-20] MEDS ORDERED: Sennosides 8.6mg tab ORAL PRN (18:45)
[2019-08-20] MEDS ORDERED: Milk of Magnesia 30ml Ud ORAL PRN (18:45)
[2019-08-20] MEDS ORDERED: Hydromorphone 0.5mg/0.5ml inj IVP PRN (18:45)
--- NOTE | 2019-08-20 19:11 | History & Physical ---
History and Physical History & Physicial Dictated for Int Med-DR Fletcher no. [id number]. Cali Redmond MD Aug 20, 2019 19:11
[2019-08-20] MEDS ORDERED: Losartan 50mg tab ORAL SCH (20:00)
[2019-08-20] MEDS: HYDROmorphone 1mg/ml Carpuject IVP PRN (20:09)
[2019-08-20] MEDS: Atorvastatin 20mg tab ORAL SCH (20:22)
[2019-08-20] MEDS ORDERED: Heparin 5000 units/ml inj SUBQ SCH ×2 (21:00→22:00)
[2019-08-20] MEDS: Ketorolac 30mg Inj IV PRN (21:40)
[2019-08-21] VITALS (16 sets, daily range): BP systolic 57–151; BP diastolic 31–99
--- NOTE | 2019-08-21 | Operative Note - Dictated ---
DATE OF OPERATION: 08/20/2019 PREOPERATIVE DIAGNOSES: 1. Incarcerated ventral hernia with high-grade small bowel obstruction. 2. Incarcerated ventral hernia x2. 3. Severe morbid obesity. POSTOPERATIVE DIAGNOSES: 1. Incarcerated ventral hernia, high-grade with small bowel obstruction. 2. Incarcerated ventral hernia with omentum and seemingly portions of the transverse colon, non-obstructed. 3. Extensive intra-abdominal adhesions. 4. Severe morbid obesity. OPERATIVE PROCEDURE: 1. Laparoscopic incarcerated ventral hernia repair with mesh. 2. Laparoscopic lysis of adhesions, extensive. 3. Laparoscopic separation of components, posterior separation. 4. Modifier 22 difficult procedure. ATTENDING SURGEON: Ash Man M.D. PLANT QUALITY MANAGER: None. ANESTHESIOLOGIST: Issa Woodward M.D. ANESTHESIA: General SOAP INSPECTOR plus local. ESTIMATED BLOOD LOSS: Minimal. IV FLUIDS: Please see anesthesia records. COMPLICATIONS: None. DRAINS: None. COUNTS: Sponge and needle counts correct x2. SPECIMEN: None. WOUND CLASSIFICATION: Class 1. IMPLANTS: OPE [employer] 15 x 15 double-sided laparoscopic mesh. Lot number [id number]. Reference [id number]. Expiration, 07/07/2021. INDICATIONS FOR PROCEDURE: This is a very pleasant 59-year-old female who presented to [facility] Emergency Department complaining of worsening abdominal pain, nausea, and emesis for two days. The patient said it was an otherwise well condition two days ago, but while at work began to develop some abdominal discomfort followed by obstipation, nausea, and then multiple bouts of emesis. Symptoms did not resolve while at home and caring for herself so she came to emergency room for evaluation at which time she was identified to have a leukocytosis and CT scan consistent with complex multiple ventral hernias, one with incarcerated small bowel causing high-grade bowel obstruction was was unable to be reduced at bedside. The patient was tender and given her severe morbid obesity, was still able to identify the hardened mass, which was incarcerated hernia. Given these findings emergency surgery was indicated and recommended. Risks, benefits, and alternatives were discussed with the patient in detail prior to surgery. I had a very long discussion with the patient given her chronic morbid obesity, significant sheer size with a BMI of [address] findings with multiple hernias and the high-grade obstruction. In later speaking with the patient's family, which she had requested, I was informed that she has known about this hernia and seek care prior, but still needed to lose significant weight as told by another physician prior to management, which I strongly agree with and I had discussed with the patient. I discussed the possibility of laparoscopic versus open repair, the possibility of bowel resection given the potential viability and nonviability of the bowel as well as mesh placement, hernia repair, or potentially even leaving her with a large open hernia depending on the tension or size and complicated procedure noted intraoperatively. After everything was discussed in detail, the patient expressed understanding. Furthermore, I did have a long conversation with the likelihood of potential recurrence as well. The patient consented to procedure and proceeded emergently to the operating room on 08/20/2019. OPERATIVE NOTE: The patient was taken to the operating room and placed on the operating room table in supine position with bilateral arms out. All bony prominences were well padded. SCDs placed. Preoperative was time-out taken identifying the patient, procedure, operative staff and surgical staff. General anesthesia was induced and the patient was intubated. SCDs were placed prior as well as antibiotics given prior. The patient had just voided prior to entering the operating room, so no Moctezuma catheter was inserted. The abdomen was clipped, prepped, and draped in standard surgical fashion. A local anesthetic was infiltrated and a 5 mm left upper quadrant Palmers point site direct visualization FiOS tip trocar was inserted without complication. The abdomen was insufflated to 12 to 15 mmHg. The port was up-sized to a 12 mm. Following this, the abdomen was inspected with the laparoscope. The liver, gallbladder, and stomach, which could be visualized were otherwise normal. In the pelvis, a large hard uterus was identified. No hernias noted in the inguinal region. In the ventral region, there was a significant portion of the patient's omentum and bowel identified incarcerated. No reduction was possible at this time with manual palpation and therefore secondary trocars were inserted under direct visualization beginning with two 5 mm left lateral abdominal mid and lower quadrant ports. Laparoscopic grasper was used and the hernia could not be reduced given the significant amount of extensive adhesions of the omentum and the bowel to the peritoneal lining around the hernia. Approximately half an hour to an hour of lysis of adhesions was performed and all the bowel contents were reduced as well as the omental contents. The small bowel contents were easily identified and protected during reduction as well as the omental contents and it was serially identified as a small portion of the transverse colon was noted to be in the superior iliac hernia. Once all contents were reduced, it was clearly identified that there were two hernias with a small bridge in between them. The larger hernia was the cephalad one with incarcerated omentum and small portion of the transverse colon, but no bowel obstruction. The smaller inferior hernia had the small bowel with a high-grade obstruction easily identifiable as the decompressed distal bowel was noted coming out and less than 2 cm in width and it was 3 or 4 centimeter dilated, injected proximal and small bowel. Once the bowel was reduced, it was monitored throughout the rest of the procedure and fortunately portion noted to be viable and the distal decompressed bowel began to fill with the contents of the proximal bowel. Once all contents were reduced, the hernia was identified and at this time decision was made to proceed with repair given the high risk nature what is just correct for the patient. Given the two hernias that were clearly identified, it was concerning especially with mesh placement and the hernia and both hernia sacs to leave the mesh two separate hernias. At this time, the bridge was divided with electrocautery and one hernia was created from the two to allow for if the patient had recurrence for potential less likelihood of a bowel obstruction while the repair to be produces one rather than two hernias. Given the sheer size of the patient, BMI of 56 and the extensive size and difficulty of the hernia, a decision was made to perform a posterior separation of components to allow for some laxity to allow potential closure of the defect prior to mesh placement. The peritoneal lining was incised just lateral to the midline and entered into the posterior rectus sheath where an incision was made from the inferior aspect of the posterior rectus sheath from the arcuate line towards the epigastrium. Once components were , the posterior component was , the slot for a fair amount of laxity. There was some bleeding noted from the muscle and a muscular vein bleeding which laparoscopic clips were used for hemostasis. This was performed on initially the right side following two ensuing the left side. Once both components were comfortably and it was clearly identified that there was more laxity for the abdominal wall without as much tension, but given the sheer size of the patient and the hernia and the weakening, it was near impossible to primarily close the defect as there was still too much tension. Following this, a decision was made to proceed with laparoscopic mesh placement. A Mosaic double-sided laparoscopic mesh 15 x 15 circular was brought into the operative field and placed into the preperitoneal space and tacked circumferentially covering the hernia defect. Appropriate coverage was satisfactory repair was noted and the peritoneal lining with was reapproximated for further coverage. Once this was completed, we identified a satisfactory repair of the hernia as well as reduction of the small bowel incarceration and alleviated the emergency bowel obstruction. At this time, no acute fany-intraoperative complications were identified. The decision made to proceed with the conclusion of this procedure. Secondary trocars were removed for tack placement of the mesh. A third 5 mm right upper quadrant trocar was placed under direct visualization. Following completion of procedure, all ports were removed under direct visualization without complication. The abdomen was desufflated and the port sites were reapproximated using 4-0 Monocryl subcuticular interrupted sutures. Steri-Strips were applied followed by dressings were applied. The patient was extubated and taken to postanesthetic care unit in stable condition. Ash Man M.D. DR: AUSTEN JOB#: [id number] CC: LIDYA
[2019-08-21] MEDS: Piperacillin/Tazobactam 3.375 GM in NS 110 ML IVPB SCH ×4 (00:56→23:44)
--- NOTE | 2019-08-21 01:45 | History and Physical Report ---
DATE OF ADMISSION: 08/20/2019 CHIEF COMPLAINT: The patient is a 59-year-old female, who presents with a chief complaint of abdominal pain, nausea, and vomiting. HISTORY OF PRESENT ILLNESS: The patient has a history of ventral hernia. The patient presented to [facility] complaining of a two-day history of abdominal pain. The patient also has had several episodes of nausea and vomiting. The patient also had been constipated over the last two days. The patient presented to [place] emergency room. A CT scan of the abdomen revealed incarcerated ventral hernia with small bowel obstruction. The patient is admitted with incarcerated ventral hernia with small bowel obstruction. REVIEW OF SYSTEMS: CONSTITUTIONAL: The patient denies weight loss or weight gain. The patient denies fevers or chills. HEENT: The patient denies ear or throat pain. The patient denies headache. CARDIOVASCULAR: The patient denies palpitations or chest pain. CHEST: The patient denies wheeze or shortness of breath. ABDOMINAL: The patient complains of abdominal pain as above. The patient also complains of nausea and vomiting. The patient complains of constipation. The patient denies diarrhea. NEUROMUSCULAR: The patient denies seizures or generalized weakness. GENITOURINARY: The patient denies dysuria or increased frequency of urination. PAST MEDICAL HISTORY: Significant for, 1. Hypertension. 2. Hypercholesterolemia. 3. Diabetes type 2. 4. History of pulmonary embolism. PAST SURGICAL HISTORY: The patient denies. CURRENT MEDICATIONS: 1. Atorvastatin 40 mg p.o. at bedtime. 2. Losartan 100 mg p.o. daily. 3. Amlodipine 10 mg p.o. daily. ALLERGIES: Codeine. SOCIAL HISTORY: The patient is single. The patient denies tobacco or alcohol use. PHYSICAL EXAMINATION: VITAL SIGNS: Temperature 98.1, respirations 18, pulse 87, and blood pressure 163/99. GENERAL: The patient is a well-developed and well-nourished obese female, in no apparent distress. HEENT: Eyes, pupils are equal and responsive to light and accommodation. Extraocular movements are intact. NECK: Supple without lymphadenopathy. CHEST: Lungs are clear to auscultation bilaterally without wheezes or rales. CARDIOVASCULAR: Regular rhythm and rate. S1, S2 normal without murmurs, rubs, or gallops. ABDOMEN: Soft, diffusely tender with decreased bowel sounds. No evidence of hepatosplenomegaly. Currently, no rebound or guarding noted. EXTREMITIES: Negative for clubbing, cyanosis, or edema. RECTAL/GENITAL: Not performed. NEUROLOGIC: Cranial nerves II to XII grossly intact without focal deficits. Motor strength is 5/5 bilaterally. Deep tendon reflexes are 2+ plantar. DIAGNOSTIC DATA: A CT scan of the abdomen and pelvis revealed a high-grade small bowel obstruction due to incarcerated ventral hernia. LABORATORY STUDIES: WBC 11.3, hemoglobin 14.3, hematocrit 45.5, and platelets 234,000. Sodium 137, potassium 4.0, chloride 99, CO2 31, BUN 13, creatinine 1.0, and glucose 169. Troponin 0.0. Urinalysis showed 3+ protein, 1+ ketones, with 2 to 4 rbc's, and 2 to 4 wbc's. ASSESSMENT: This is a 59-year-old female. 1. Small bowel obstruction. 2. Incarcerated ventral hernia. 3. Hypertension. 4. Hypercholesterolemia. 5. History of pulmonary embolism. 6. History of diabetes type 2. TREATMENT: 1. Small bowel obstruction/incarcerated ventral hernia. A General Surgery consultation has been obtained with Dr. Ash Man. The patient may require emergent surgery. We will follow recommendations of Surgery. 2. Hypertension. Continue amlodipine and losartan as above. 3. Hypercholesterolemia. Continue atorvastatin as above. 4. Diabetes type 2. A NovoLog sliding scale has been instituted. 5. History of pulmonary embolism. Cali Redmond M.D. DR: SHANTI JOB#: [id number] CC:
[2019-08-21] MEDS: D5 1/2NS 1,000 ML IV SCH ×3 (05:00→13:02)
[2019-08-21] MEDS: Heparin 5000 units/ml inj SUBQ SCH ×2 (06:07→13:32)
[2019-08-21 06:54] LABS: BASOPHILS % (AUTO) 0.7 % (0.0-2.0); HEMATOCRIT 42.8 % (37.0-47.0); HEMOGLOBIN 13.5 G/DL (12.0-16.0); LYMPHOCYTES % (AUTO) 7.9 % (20.0-45.0); MEAN CORPUSCULAR VOLUME 70 FL (80-99); MONOCYTES % (AUTO) 9.2 % (1.0-10.0); NEUTROPHILS % (AUTO) 82.2 % (45.0-75.0); PLATELET COUNT 190 K/UL (150-450); RED BLOOD COUNT 6.07 M/UL (4.20-5.40); RED CELL DISTRIBUTION WIDTH 12.6 % (11.6-14.8); WHITE BLOOD COUNT 8.7 K/UL (4.8-10.8)
[2019-08-21 07:00] LABS: ALANINE AMINOTRANSFERASE 17 U/L (12-78); ALBUMIN/GLOBULIN RATIO 0.6 (1.0-2.7); ALKALINE PHOSPHATASE 90 U/L (46-116); AMYLASE 205 U/L (25-115); ANION GAP 14 mmol/L (5-15); ASPARTATE AMINO TRANSFERASE 21 U/L (15-37); BILIRUBIN,TOTAL 0.9 MG/DL (0.2-1.0); BLOOD UREA NITROGEN 24 mg/dL (7-18); CALCIUM 8.6 MG/DL (8.5-10.1); CARBON DIOXIDE 24 MMOL/L (21-32); CHLORIDE 100 MMOL/L (98-107); CREATININE 2.7 MG/DL (0.55-1.30); POTASSIUM 3.2 MMOL/L (3.5-5.1); SODIUM 138 MMOL/L (136-145)
[2019-08-21 07:14] LABS: PHOSPHORUS 4.3 MG/DL (2.5-4.9)
[2019-08-21] MEDS: Docusate 100mg cap ORAL SCH ×2 (08:32→18:53)
[2019-08-21] MEDS: HYDROmorphone 1mg/ml Carpuject IVP PRN (08:32)
[2019-08-21] MEDS ORDERED: Pantoprazole Inj IV SCH (09:00)
[2019-08-21] MEDS ORDERED: Losartan 50mg tab ORAL SCH (09:00)
--- NOTE | 2019-08-21 09:15 | 48 Hour Post Anesthesia Eval ---
Post Anesthesia Evaluation Procedure: Laparoscopic Ventral Hernia Repair Date of Evaluation: Aug 21, 2019 Time of Evaluation: 06:24 Blood Pressure Systolic: 96 0: 64 Pulse Rate: 110 Respiratory Rate: 19 Temperature (Fahrenheit): 97.8 O2 Sat by Pulse Oximetry: 92 Airway: patent Nausea: No Vomiting: No Pain Intensity: 3 Hydration Status: adequate Cardiopulmonary Status: Stable Mental Status/LOC: patient returned to baseline Follow-up Care/Observations: 0 Post-Anesthesia Complications: 0 Follow-up care needed: N/A Issa Woodward MD Aug 21, 2019 09:15
--- NOTE | 2019-08-21 11:54 | Pulmonology Progress Note ---
Assessment/Plan Problems: (1) Ileus (2) Refractory nausea and vomiting (3) Hx pulmonary embolism (4) History of hypertension (5) Diabetes mellitus Assessment/Plan underwent Laparoscopic incarcerated ventral hernia repair doing better sliding scale increase iv fluids dvt prophylaxis symptomatic treatment Subjective ROS Limited/Unobtainable: No Interval Events: tolerated surgery very well Allergies: Coded Allergies: CODEINE (Verified Allergy, Unknown, 08/20/19) Objective Last 24 Hour Vital Signs Date Time Temp Pulse Resp B/P (MAP) Pulse Ox O2 Delivery O2 Flow Rate FiO2 08/21/19 09:15 110 19 92 08/21/19 09:00 Nasal Cannula 2.0 08/21/19 08:34 79 151/99 08/21/19 08:00 98.2 79 18 151/99 (116) 91 08/21/19 04:00 97.8 110 19 96/64 (75) 92 08/21/19 00:00 98.2 84 20 121/76 (91) 92 08/20/19 21:00 Nasal Cannula 2.0 08/20/19 20:21 118/67 08/20/19 20:00 97.8 78 20 118/67 (84) 94 08/20/19 19:20 98.7 81 24 118/68 96 Nasal Cannula 3 08/20/19 19:05 82 24 119/72 96 Nasal Cannula 3 08/20/19 18:50 78 24 124/69 96 Nasal Cannula 3 08/20/19 18:40 79 20 125/71 96 Nasal Cannula 3 08/20/19 18:30 82 24 127/71 96 Nasal Cannula 3 08/20/19 18:25 88 21 138/82 97 Nasal Cannula 3 08/20/19 18:23 93 16 97 08/20/19 18:19 97.8 87 22 140/80 97 Nasal Cannula 3 08/20/19 14:16 98.1 08/20/19 12:46 89 148/86 08/20/19 12:41 Room Air Intake and Output 08/20/19 08/21/19 19:00 07:00 Intake Total 1200 ml 360.0 ml Output Total 50 ml Balance 1150 ml 360.0 ml IV Total 1200 ml 360.0 ml Output Estimated Blood Loss 50 ml General Appearance: WD/WN HEENT: normocephalic, atraumatic Respiratory/Chest: chest wall non-tender, lungs clear Breasts: no masses Cardiovascular: normal peripheral pulses Abdomen: normal bowel sounds, soft, non tender Genitourinary: normal external genitalia Neurologic/Psychiatric: bleach packer II-XII grossly normal Laboratory Tests 08/21/19 05:20: White Blood Count 8.7, Red Blood Count 6.07H, Hemoglobin 13.5, Hematocrit 42.8, Mean Corpuscular Volume 70L, Mean Corpuscular Hemoglobin 22.2L, Mean Corpuscular Hemoglobin Concent 31.6L, Red Cell Distribution Width 12.6, Platelet Count 190, Mean Platelet Volume 8.2, Neutrophils (%) (Auto) 82.2H, Lymphocytes (%) (Auto) 7.9L, Monocytes (%) (Auto) 9.2, Eosinophils (%) (Auto) 0.0, Basophils (%) (Auto) 0.7, Erythrocyte Sedimentation Rate [Pending], Activated Partial Thromboplast Time 24, Sodium Level 138, Potassium Level 3.2L, Chloride Level 100, Carbon Dioxide Level 24, Anion Gap 14, Blood Urea Nitrogen 24H, Creatinine 2.7#H, Estimat Glomerular Filtration Rate 21.9, Glucose Level 147H, Calcium Level 8.6, Phosphorus Level 4.3, Magnesium Level 3.0H, Total Bilirubin 0.9, Aspartate Amino Transf (AST/SGOT) 21, Alanine Aminotransferase ( ALT/SGPT) 17, Alkaline Phosphatase 90, C-Reactive Protein, Quantitative 13.8H, Total Protein 7.7, Albumin 3.0L, Globulin 4.7, Albumin/Globulin Ratio 0.6L, Amylase Level 205H, Lipase 92 Current Medications Medications (Trade) Dose Ordered Sig/Juan Route PRN Reason Start Time Stop Time Status Last Admin Dose Admin Acetaminophen (Tylenol) 650 mg Q4H PRN ORAL fever 08/20/19 12:30 09/19/19 12:29 Acetaminophen (Tylenol) 650 mg Q4H PRN ORAL FEVER 08/20/19 18:45 09/19/19 18:44 Acetaminophen (Tylenol) 650 mg Q6H PRN ORAL Mild Pain (Pain Scale 1-3) 08/20/19 18:45 09/19/19 18:44 08/20/19 20:15 Al Hydroxide/Mg Hydroxide (Mylanta) 15 ml Q6H PRN ORAL DYSPEPSIA 08/20/19 18:45 4/11/20 18:44 Albuterol/ Ipratropium (Albuterol/ Ipratropium) 3 ml Q4H PRN HHN Shortness of Breath 08/21/19 11:30 08/26/19 11:29 Amlodipine Besylate (Norvasc) 10 mg DAILY ORAL 08/20/19 12:25 09/19/19 12:24 08/21/19 08:34 Atorvastatin Calcium (Lipitor) 40 mg BEDTIME ORAL 08/20/19 21:00 09/19/19 20:59 08/20/19 20:22 Barium Sulfate (Readi-Cat 2) 450 ml NOW PRN ORAL Radiology Procedure 08/20/19 06:45 08/22/19 06:35 Dextrose (Dextrose 50%) 25 ml Q30M PRN IV Hypoglycemia 08/20/19 12:45 09/19/19 12:44 Dextrose (Dextrose 50%) 50 ml Q30M PRN IV Hypoglycemia 08/20/19 12:45 09/19/19 12:44 Dextrose/Sodium Chloride 1,000 ml @ 100 mls/hr Q10H IV 08/21/19 12:23 09/19/19 12:22 Diphenhydramine HCl (Benadryl) 25 mg Q6H PRN ORAL Itching/Pruritis 08/20/19 12:30 09/19/19 12:29 Diphenhydramine HCl (Benadryl) 25 mg Q8H PRN ORAL Itching/Pruritis 08/20/19 18:45 09/19/19 18:44 Docusate Sodium (Colace) 100 mg TWICE A DAY ORAL 08/21/19 09:00 09/20/19 08:59 08/21/19 08:32 Heparin Sodium (Porcine) (Heparin 5000 units/ml) 5,000 units EVERY 8 HOURS SUBQ 08/21/19 06:00 10/05/19 05:59 08/21/19 06:07 Hydromorphone HCl (Dilaudid) 0.5 mg Q3H PRN IVP Pain Score 1-3 08/20/19 18:45 08/27/19 18:44 Hydromorphone HCl (Dilaudid) 1 mg Q3H PRN IVP pain score 4-6 08/20/19 18:45 08/27/19 18:44 08/21/19 08:32 Hydromorphone HCl (Dilaudid) 2 mg Q3H PRN IVP pain score 7-10 08/20/19 18:45 08/27/19 18:44 08/21/19 03:03 Ketorolac Tromethamine (Toradol 30mg) 15 mg Q6H PRN IV For Pain 08/20/19 18:45 08/25/19 18:44 08/20/19 21:40 Losartan Potassium (Cozaar) 100 mg Q24H ORAL 08/20/19 20:00 09/19/19 19:59 08/20/19 20:21 Magnesium Hydroxide (Mom) 30 ml Q12H PRN ORAL Constipation 08/20/19 18:45 09/19/19 18:44 Metoclopramide HCl (Reglan) 10 mg Q6H PRN IVP servere nauasea 08/20/19 12:30 09/19/19 12:29 Morphine Sulfate (Morphine Sulfate) 2 mg Q4H PRN IVP PAIN 4-6 08/20/19 13:30 08/27/19 13:29 08/20/19 13:46 Morphine Sulfate (Morphine Sulfate) 4 mg Q4H PRN IVP Severe Breakthru Pain (>7) 08/20/19 13:30 08/27/19 13:29 Nitroglycerin (Ntg) 0.4 mg Q5M X 3 DOSES PRN SL Prn Chest Pain 08/20/19 12:30 09/19/19 12:29 Ondansetron HCl (Zofran) 4 mg Q6H PRN IVP Nausea & Vomiting 08/20/19 12:30 09/19/19 12:29 Ondansetron HCl (Zofran) 4 mg Q6H PRN IVP Nausea & Vomiting 08/20/19 18:45 09/19/19 18:44 Pantoprazole (Protonix) 40 mg DAILY IV 08/21/19 09:00 09/20/19 08:59 08/21/19 08:32 Piperacillin Sod/ Tazobactam Sod 3.375 gm/Sodium Chloride 110 ml @ 27.5 mls/hr Q8H IVPB 08/20/19 16:00 08/27/19 15:59 08/21/19 08:33 Polyethylene Glycol (Miralax) 17 gm HSPRN PRN ORAL Constipation 08/20/19 12:30 09/19/19 12:29 Promethazine HCl (Phenergan) 25 mg Q6H PRN IM Refractory N/V 08/20/19 12:30 08/25/19 12:29 Sennosides (Senokot) 8.6 mg Q12H PRN ORAL Constipation 08/20/19 18:45 09/19/19 18:44 Temazepam (RestoriL) 7.5 mg DAILYPRN PRN ORAL Insomnia 08/20/19 18:45 08/27/19 18:44 Temazepam (Restoril) 15 mg HSPRN PRN ORAL Insomnia 08/20/19 12:30 08/27/19 12:29 Jamil Green MD Aug 21, 2019 11:54
--- NOTE | 2019-08-21 12:30 | Surgery Progress Note ---
Surgery Progress Note Subjective Procedure Performed 1 laparoscopic incarcerated ventral hernia repair with mesh 2 laparoscopic lysis of adhesions extensive 3 laparoscopic separation of components posterior 4 modifier 22 Additional Comments did not void - refused straight cath - plan for ambriz given cr elevation some oral intake no flatus pain controlled discussed operative findings and care plan ambulate and out of bed Objective Last 24 Hour Vital Signs Date Time Temp Pulse Resp B/P (MAP) Pulse Ox O2 Delivery O2 Flow Rate FiO2 08/21/19 09:15 110 19 92 08/21/19 09:00 Nasal Cannula 2.0 08/21/19 08:34 79 151/99 08/21/19 08:00 98.2 79 18 151/99 (116) 91 08/21/19 04:00 97.8 110 19 96/64 (75) 92 08/21/19 00:00 98.2 84 20 121/76 (91) 92 08/20/19 21:00 Nasal Cannula 2.0 08/20/19 20:21 118/67 08/20/19 20:00 97.8 78 20 118/67 (84) 94 08/20/19 19:20 98.7 81 24 118/68 96 Nasal Cannula 3 08/20/19 19:05 82 24 119/72 96 Nasal Cannula 3 08/20/19 18:50 78 24 124/69 96 Nasal Cannula 3 08/20/19 18:40 79 20 125/71 96 Nasal Cannula 3 08/20/19 18:30 82 24 127/71 96 Nasal Cannula 3 08/20/19 18:25 88 21 138/82 97 Nasal Cannula 3 08/20/19 18:23 93 16 97 08/20/19 18:19 97.8 87 22 140/80 97 Nasal Cannula 3 08/20/19 14:16 98.1 08/20/19 12:46 89 148/86 08/20/19 12:41 Room Air I&O Intake and Output 08/20/19 08/21/19 19:00 07:00 Intake Total 1200 ml 360.0 ml Output Total 50 ml Balance 1150 ml 360.0 ml IV Total 1200 ml 360.0 ml Output Estimated Blood Loss 50 ml Dressing: saturated Wound: clean Cardiovascular: RSR Respiratory: clear Abdomen: soft, non-tender, present bowel sounds Extremities: no edema, no tenderness, no cyanosis Laboratory Tests Test 3/13/20 05:20 White Blood Count 8.7 K/UL (4.8-10.8) Red Blood Count 6.07 M/UL (4.20-5.40) H Hemoglobin 13.5 G/DL (12.0-16.0) Hematocrit 42.8 % (37.0-47.0) Mean Corpuscular Volume 70 FL (80-99) L Mean Corpuscular Hemoglobin 22.2 PG (27.0-31.0) L Mean Corpuscular Hemoglobin Concent 31.6 G/DL (32.0-36.0) L Red Cell Distribution Width 12.6 % (11.6-14.8) Platelet Count 190 K/UL (150-450) Mean Platelet Volume 8.2 FL (6.5-10.1) Neutrophils (%) (Auto) 82.2 % (45.0-75.0) H Lymphocytes (%) (Auto) 7.9 % (20.0-45.0) L Monocytes (%) (Auto) 9.2 % (1.0-10.0) Eosinophils (%) (Auto) 0.0 % (0.0-3.0) Basophils (%) (Auto) 0.7 % (0.0-2.0) Erythrocyte Sedimentation Rate 18 MM/HR (0-30) Activated Partial Thromboplast Time 24 SEC (23-33) Sodium Level 138 MMOL/L (136-145) Potassium Level 3.2 MMOL/L (3.5-5.1) L Chloride Level 100 MMOL/L (98-107) Carbon Dioxide Level 24 MMOL/L (21-32) Anion Gap 14 mmol/L (5-15) Blood Urea Nitrogen 24 mg/dL (7-18) H Creatinine 2.7 MG/DL (0.55-1.30) #H Estimat Glomerular Filtration Rate 21.9 mL/min (>60) Glucose Level 147 MG/DL (74-106) H Calcium Level 8.6 MG/DL (8.5-10.1) Phosphorus Level 4.3 MG/DL (2.5-4.9) Magnesium Level 3.0 MG/DL (1.8-2.4) H Total Bilirubin 0.9 MG/DL (0.2-1.0) Aspartate Amino Transf (AST/SGOT) 21 U/L (15-37) Alanine Aminotransferase (ALT/SGPT) 17 U/L (12-78) Alkaline Phosphatase 90 U/L (46-116) C-Reactive Protein, Quantitative 13.8 mg/dL (0.00-0.90) H Total Protein 7.7 G/DL (6.4-8.2) Albumin 3.0 G/DL (3.4-5.0) L Globulin 4.7 g/dL Albumin/Globulin Ratio 0.6 (1.0-2.7) L Amylase Level 205 U/L (25-115) H Lipase 92 U/L (73-393) Assessment Post-op Diagnosis 1 incarcerated ventral hernia with high-grade small bowel obstruction 2 incarcerated ventral hernia with omentum and seemingly portion of the transverse colon 3 extensive intra-abdominal adhesions around hernia site Plan Problems: (1) Incarcerated ventral hernia Assessment & Plan: Patient with high-grade small bowel obstruction secondary to incarcerated ventral hernia. Not able to reduce at bedside. Tender CT reviewed exam reviewed Patient is very obese with 2 hernias one causing high-grade obstruction. The 2 hernias are well connected to each other as they are overlapping with just a short bridge. Unfortunately given the patient's size current findings and overall health condition this is a very concerning and surgical emergency as well. I had a long discussion with the patient the bedside regards to these findings. I explained to her and reviewed the findings of the high-grade obstruction secondary to the hernia and the second hernia with significant bowel contents as well that is adjoining to this smaller hernia with obstruction. I explained to the patient possible intervention techniques including laparoscopic and open surgery. I discussed mesh placement possible component separation possible soft tissue rearrangement for closure given size of the defect. I explained the patient there is a probability as well that given her sheer size as well as the size of the defect that it may not be possible to considerably close at this time and she may have one large hernia. I explained to her the risk of potential bowel viability and may be the need for bowel resection. I explained to her the high risk nature of the procedure given her size medical condition comorbidities and the potential risk benefits and alternatives surgery as well as the potential postoperative complications including high likelihood of potential wound infection as well as wound complications. Patient expressed understanding consent was obtained OR team was called and patient was urgently taken to the operating room for care Status post laparoscopic reduction and repair on 08/20/2019. Recovering Postop Urinary Retention Place, Ambriz given elevation in renal function Nephrology consulted Diet only as tolerated do not push unless patient desired Ambulate and out of bed Incentive spirometry Continue ABx Given patient's history of DVT will start prophylaxis discussed bleeding risk with patient expressed understanding (2) Small bowel obstruction Assessment & Plan: There are 2 ventral hernias. The more inferior of the 2, which appears to be periumbilical, contains 2 several loops of small bowel. The small bowel leading into one of the contained loops is dilated and the exiting small bowel is nondilated. This loop also contains dilated small bowel within the hernia. The other loop of small bowel within the hernia appears nonobstructed. A second hernia located more cephalad contains transverse colon as well as a separate loop of small bowel, appears to be nonobstructive. Ingested contrast has only traversed a small distance into the duodenum. There is colonic diverticulosis. No evidence of acute diverticulitis. The appendix is normal. No free or loculated intraperitoneal gas or fluid. Distal esophagus, stomach, duodenum are unremarkable. The lack of IV contrast limits assessment of solid organs. The liver, gallbladder, bile ducts, pancreas, spleen, adrenals, kidneys are unremarkable. No retroperitoneal or mesenteric mass or adenopathy. The uterus is markedly enlarged, contains calcifications consistent with degenerated fibroids. No adnexal mass. The bones demonstrate degenerative changes of the lumbosacral junction. The included lung bases demonstrate posterior dependent atelectatic changes. Impression: High-grade small bowel obstruction due to a ventral hernia. Note that this is the more inferior of 2 ventral hernias. The inferior hernia contains 2 small bowel loops, one of which is the obstructed loop. The more cephalad hernia located immediately adjacent contains a loop of small bowel and a knuckle of transverse colon. This is nonobstructive Colonic diverticulosis. No evidence of diverticulitis Enlarged fibroid uterus Incidental findings of degenerative lumbosacral spondylosis, posterior pulmonary dependent atelectatic changes Ash Man Aug 21, 2019 12:30
[2019-08-21] MEDS: Ketorolac 30mg Inj IV PRN (12:46)
[2019-08-21] MEDS: Albuterol/Ipratropium 3ml neb HHN PRN ×2 (13:42→22:00)
--- NOTE | 2019-08-21 16:22 | Internal Med Progress Note ---
Subjective Physician Name Telly Fletcher Attending Physician Telly Fletcher MD Current Medications Medications (Trade) Dose Ordered Sig/Juan Route PRN Reason Start Time Stop Time Status Last Admin Dose Admin Acetaminophen (Tylenol) 650 mg Q4H PRN ORAL fever 08/20/19 12:30 09/19/19 12:29 Acetaminophen (Tylenol) 650 mg Q4H PRN ORAL FEVER 08/20/19 18:45 09/19/19 18:44 Acetaminophen (Tylenol) 650 mg Q6H PRN ORAL Mild Pain (Pain Scale 1-3) 08/20/19 18:45 09/19/19 18:44 08/20/19 20:15 Al Hydroxide/Mg Hydroxide (Mylanta) 15 ml Q6H PRN ORAL DYSPEPSIA 08/20/19 18:45 09/19/19 18:44 Albuterol/ Ipratropium (Albuterol/ Ipratropium) 3 ml Q4H PRN HHN Shortness of Breath 08/21/19 11:30 08/26/19 11:29 08/21/19 13:42 Amlodipine Besylate (Norvasc) 10 mg DAILY ORAL 08/20/19 12:25 09/19/19 12:24 08/21/19 08:34 Atorvastatin Calcium (Lipitor) 40 mg BEDTIME ORAL 08/20/19 21:00 09/19/19 20:59 08/20/19 20:22 Barium Sulfate (Readi-Cat 2) 450 ml NOW PRN ORAL Radiology Procedure 08/20/19 06:45 08/22/19 06:35 Dextrose (Dextrose 50%) 25 ml Q30M PRN IV Hypoglycemia 08/20/19 12:45 09/19/19 12:44 Dextrose (Dextrose 50%) 50 ml Q30M PRN IV Hypoglycemia 08/20/19 12:45 09/19/19 12:44 Dextrose/Sodium Chloride 1,000 ml @ 100 mls/hr Q10H IV 08/21/19 12:23 09/19/19 12:22 08/21/19 13:02 Diphenhydramine HCl (Benadryl) 25 mg Q6H PRN ORAL Itching/Pruritis 08/20/19 12:30 09/19/19 12:29 Diphenhydramine HCl (Benadryl) 25 mg Q8H PRN ORAL Itching/Pruritis 08/20/19 18:45 09/19/19 18:44 Docusate Sodium (Colace) 100 mg TWICE A DAY ORAL 08/21/19 09:00 09/20/19 08:59 08/21/19 08:32 Heparin Sodium (Porcine) (Heparin 5000 units/ml) 5,000 units EVERY 8 HOURS SUBQ 08/21/19 06:00 10/05/19 05:59 08/21/19 13:32 Hydromorphone HCl (Dilaudid) 0.5 mg Q3H PRN IVP Pain Score 1-3 08/20/19 18:45 08/27/19 18:44 Hydromorphone HCl (Dilaudid) 1 mg Q3H PRN IVP pain score 4-6 08/20/19 18:45 08/27/19 18:44 08/21/19 08:32 Hydromorphone HCl (Dilaudid) 2 mg Q3H PRN IVP pain score 7-10 08/20/19 18:45 08/27/19 18:44 08/21/19 03:03 Ketorolac Tromethamine (Toradol 30mg) 15 mg Q6H PRN IV For Pain 08/20/19 18:45 08/25/19 18:44 08/21/19 12:46 Losartan Potassium (Cozaar) 100 mg Q24H ORAL 08/20/19 20:00 09/19/19 19:59 08/20/19 20:21 Magnesium Hydroxide (Mom) 30 ml Q12H PRN ORAL Constipation 08/20/19 18:45 09/19/19 18:44 Metoclopramide HCl (Reglan) 10 mg Q6H PRN IVP servere nauasea 08/20/19 12:30 09/19/19 12:29 Morphine Sulfate (Morphine Sulfate) 2 mg Q4H PRN IVP PAIN 4-6 08/20/19 13:30 08/27/19 13:29 08/20/19 13:46 Morphine Sulfate (Morphine Sulfate) 4 mg Q4H PRN IVP Severe Breakthru Pain (>7) 08/20/19 13:30 08/27/19 13:29 Nitroglycerin (Ntg) 0.4 mg Q5M X 3 DOSES PRN SL Prn Chest Pain 08/20/19 12:30 09/19/19 12:29 Ondansetron HCl (Zofran) 4 mg Q6H PRN IVP Nausea & Vomiting 08/20/19 12:30 09/19/19 12:29 Ondansetron HCl (Zofran) 4 mg Q6H PRN IVP Nausea & Vomiting 08/20/19 18:45 09/19/19 18:44 Pantoprazole (Protonix) 40 mg DAILY IV 08/21/19 09:00 09/20/19 08:59 08/21/19 08:32 Piperacillin Sod/ Tazobactam Sod 3.375 gm/Sodium Chloride 110 ml @ 27.5 mls/hr Q8H IVPB 08/20/19 16:00 08/27/19 15:59 08/21/19 08:33 Polyethylene Glycol (Miralax) 17 gm HSPRN PRN ORAL Constipation 08/20/19 12:30 09/19/19 12:29 Promethazine HCl (Phenergan) 25 mg Q6H PRN IM Refractory N/V 08/20/19 12:30 08/25/19 12:29 Sennosides (Senokot) 8.6 mg Q12H PRN ORAL Constipation 08/20/19 18:45 09/19/19 18:44 Temazepam (RestoriL) 7.5 mg DAILYPRN PRN ORAL Insomnia 08/20/19 18:45 08/27/19 18:44 Temazepam (Restoril) 15 mg HSPRN PRN ORAL Insomnia 08/20/19 12:30 08/27/19 12:29 Allergies: Coded Allergies: CODEINE (Verified Allergy, Unknown, 08/20/19) Subjective awake, alert, responsive, NAD, Hypotensive, worsening renal function BUN/ CR: 24 / 2.7 and K: 3.2. Urine retention and Moctezuma placement. sister at bedside. Objective Last Vital Signs Date Time Temp Pulse Resp B/P (MAP) Pulse Ox O2 Delivery O2 Flow Rate FiO2 08/21/19 13:53 75 20 96 Venturi Mask 10.0 45 78 20 92 08/21/19 12:00 97.6 93/56 (68) Laboratory Tests Test 08/21/19 05:20 White Blood Count 8.7 K/UL (4.8-10.8) Red Blood Count 6.07 M/UL (4.20-5.40) H Hemoglobin 13.5 G/DL (12.0-16.0) Hematocrit 42.8 % (37.0-47.0) Mean Corpuscular Volume 70 FL (80-99) L Mean Corpuscular Hemoglobin 22.2 PG (27.0-31.0) L Mean Corpuscular Hemoglobin Concent 31.6 G/DL (32.0-36.0) L Red Cell Distribution Width 12.6 % (11.6-14.8) Platelet Count 190 K/UL (150-450) Mean Platelet Volume 8.2 FL (6.5-10.1) Neutrophils (%) (Auto) 82.2 % (45.0-75.0) H Lymphocytes (%) (Auto) 7.9 % (20.0-45.0) L Monocytes (%) (Auto) 9.2 % (1.0-10.0) Eosinophils (%) (Auto) 0.0 % (0.0-3.0) Basophils (%) (Auto) 0.7 % (0.0-2.0) Erythrocyte Sedimentation Rate 18 MM/HR (0-30) Activated Partial Thromboplast Time 24 SEC (23-33) Sodium Level 138 MMOL/L (136-145) Potassium Level 3.2 MMOL/L (3.5-5.1) L Chloride Level 100 MMOL/L (98-107) Carbon Dioxide Level 24 MMOL/L (21-32) Anion Gap 14 mmol/L (5-15) Blood Urea Nitrogen 24 mg/dL (7-18) H Creatinine 2.7 MG/DL (0.55-1.30) #H Estimat Glomerular Filtration Rate 21.9 mL/min (>60) Glucose Level 147 MG/DL (74-106) H Calcium Level 8.6 MG/DL (8.5-10.1) Phosphorus Level 4.3 MG/DL (2.5-4.9) Magnesium Level 3.0 MG/DL (1.8-2.4) H Total Bilirubin 0.9 MG/DL (0.2-1.0) Aspartate Amino Transf (AST/SGOT) 21 U/L (15-37) Alanine Aminotransferase (ALT/SGPT) 17 U/L (12-78) Alkaline Phosphatase 90 U/L (46-116) C-Reactive Protein, Quantitative 13.8 mg/dL (0.00-0.90) H Total Protein 7.7 G/DL (6.4-8.2) Albumin 3.0 G/DL (3.4-5.0) L Globulin 4.7 g/dL Albumin/Globulin Ratio 0.6 (1.0-2.7) L Amylase Level 205 U/L (25-115) H Lipase 92 U/L (73-393) Intake and Output 08/20/19 08/21/19 19:00 07:00 Intake Total 1200 ml 360.0 ml Output Total 50 ml Balance 1150 ml 360.0 ml IV Total 1200 ml 360.0 ml Output Estimated Blood Loss 50 ml Objective General: No acute distress, awake and alert HEENT: NCAT, sclera anicteric, PERRL, EOMI. Neck: Supple, no significant jugular venous distention, Lungs: Fair inspiratory effort, decrease air at bases, no Wheeze or Rales. Heart: Regular rate and rhythm, normal S1/S2, no murmur. Abdomen: soft, Generalized tenderness, nondistended. Normoactive bowel sounds, morbid Obesity. surgical incision inatct. : Moctezuma cath. Extremities: No Cyanosis , clubbing or edema. Neuro: A&O x 3, Able to move all extremities Skin: warm, no rashes or lesions Psych: Normal mood and affect Assessment/Plan Assessment/Plan ASSESSMENT: This is a 59-year-old female. 1. Small bowel obstruction. 2. Incarcerated ventral hernia. 3. Hypertension. 4. Hypercholesterolemia. 5. History of pulmonary embolism. 6. History of diabetes type 2. 7. GEMMA most likely due to hypotension and Urinary retention / Obstructive uropathy. 8. Urine retention. 9. Morbid obesity. TREATMENT: 1. Small bowel obstruction/incarcerated ventral hernia. A General Surgery consultation has been obtained with Dr. Ash Man. The patient may require emergent surgery. We will follow recommendations of Surgery. S/P (08/20/2019) 1. Laparoscopic incarcerated ventral hernia repair with mesh. 2. Laparoscopic lysis of adhesions, extensive. 3. Laparoscopic separation of components, posterior separation. 2. Hypertension. Hold amlodipine and losartan. 3. Hypercholesterolemia. Continue atorvastatin as above. 4. Diabetes type 2. A NovoLog sliding scale has been instituted. 5. History of pulmonary embolism. Full code DVT prophylax: Heparin SQ and SCD Increase IVF @ 125 cc/hr Abx: Zosyn IV Kcl supplements Monitor labs in AM Nephrology consult: Telly Donaldson MD Aug 21, 2019 16:22
[2019-08-21] MEDS ORDERED: Ketorolac 30mg Inj IV PRN (16:45)
[2019-08-21] MEDS ORDERED: Heparin 5000 units/ml inj IV ONE (20:45)
[2019-08-21] MEDS ORDERED: Tamsulosin 0.4mg cap ORAL SCH (21:00)
[2019-08-21] MEDS: Atorvastatin 20mg tab ORAL SCH (21:21)
--- NOTE | 2019-08-21 21:25 | Diagnostic Imaging Report ---
EXAM: XR Chest, 1 View CLINICAL HISTORY: DYSPNEA TECHNIQUE: Frontal view of the chest. COMPARISON: None FINDINGS: Lungs: There is no confluent airspace disease. There is pulmonary vascular congestion. There is bibasilar atelectasis. There may be a small left pleural effusion. Pleural space: See above. Heart: The heart is enlarged. Mediastinum: The mediastinum is widened. Bones/joints: There is no acute bony abnormality. IMPRESSION: Mild to moderate congestive heart failure.
[2019-08-21 21:35] LABS: BASOPHILS % (AUTO) 1.8 % (0.0-2.0); EOSINOPHILS % (AUTO) 0.1 % (0.0-3.0); HEMATOCRIT 44.1 % (37.0-47.0); HEMOGLOBIN 13.6 G/DL (12.0-16.0); LYMPHOCYTES % (AUTO) 18.5 % (20.0-45.0); MEAN CORPUSCULAR VOLUME 69 FL (80-99); MONOCYTES % (AUTO) 6.4 % (1.0-10.0); NEUTROPHILS % (AUTO) 73.3 % (45.0-75.0); PLATELET COUNT 186 K/UL (150-450); RED BLOOD COUNT 6.35 M/UL (4.20-5.40); RED CELL DISTRIBUTION WIDTH 14.5 % (11.6-14.8); WHITE BLOOD COUNT 9.2 K/UL (4.8-10.8)
[2019-08-21] MEDS ORDERED: Heparin 25,000u/D5W 500ml 500 ML IV SCH (22:00)
--- NOTE | 2019-08-21 22:18 | Diagnostic Imaging Report ---
EXAM: US Duplex Bilateral Lower Extremities Veins CLINICAL HISTORY: THROM TECHNIQUE: Real-time duplex ultrasound scan of the bilateral lower extremity veins integrating B-mode two-dimensional vascular structure, Doppler spectral analysis, color flow Doppler imaging and compression. COMPARISON: No relevant prior studies available. FINDINGS: Evaluation limited by patient body habitus. No evidence of DVT bilateral lower extremities.
[2019-08-22] VITALS: BP 86/51
[2019-08-22 00:15] VITALS: BP 105/63
[2019-08-22 00:30] VITALS: BP 76/56
[2019-08-22 00:41] VITALS: BP 71/38
[2019-08-22 01:00] VITALS: BP 132/109
[2019-08-22 01:15] VITALS: BP 94/17
[2019-08-22] MEDS ORDERED: Etomidate 40mg/20ml Inj IV ONE (01:39)
[2019-08-22] MEDS ORDERED: NS 500ML ONE (01:39)
[2019-08-22] MEDS ORDERED: Rocuronium Bromide 50mg/5ml Inj IV ONE (01:39)
--- NOTE | 2019-08-22 05:32 | Emergency Room Report ---
History of Present Illness General Chief Complaint: Abdominal Pain Source: Patient Present Illness Allergies: Coded Allergies: CODEINE (Verified Allergy, Unknown, 08/20/19) Nursing Documentation-PMH Hx Cardiac Problems: Yes Hx Hypertension: Yes Hx COPD: Yes - hx of P.E Hx Diabetes: Yes Hx Cancer: No Hx Gastrointestinal Problems: Yes Hx Neurological Problems: No Physical Exam Vital Signs Date Time Temp Pulse Resp B/P (MAP) Pulse Ox O2 Delivery O2 Flow Rate FiO2 08/20/19 06:17 98.1 87 18 163/99 (120) 98 Room Air 08/20/19 18:19 3 08/21/19 10:55 45 Procedures Critical Care Time Critical Care Time i. I feel this is a highly complex case requiring extensive working including EKG/Rhythm strip, Xray/CT/US, Blood/urine lab work, repeat exams while in ED, and administration of strong opiates/narcotics for pain control, admission to hospital or close patient follow up. Total time: 60 min bedside evaluation and treatment excludes procedures (EKG). Reason for critical care: hypotensive, resp distress Possible complications: hypotension, hypertension, DE, shock, arrhythmias, metabolic acidosis, end organ damage, respiratory failure. Interventions: Intubation, ACLS, chest compressions Course: I was called to the ICU to evaluate this patient. Hypotensive. Hypoxic and short of breath. On BiPAP. Status post incarcerated hernia surgery. History of PE. On heparin. Patient in distress. Hypoxic on BiPAP. Patient started to aspirate gastric content. BiPAP quickly removed and RSI meds given and patient intubated using glide scope. Patient became bradycardic and lost pulse. Chest compressions started. equal breath sounds bilaterally. Patient in asystole. Chest compressions continued. Given multiple rounds of epinephrine. Given calcium and bicarbonate. After multiple rounds of medication patient remains in asystole. Prognosis is poor. Resuscitative efforts terminated. A patient expires. I discussed with sister who is at bedside. Consultations: nursing staff, EMS, family Performed by: Dr Wright Tolerated well condition = j. because of unstable vital signs this patient had a condition that could potentially threaten life or limb. I feel this is a critical patient who required my full attention while patient was considered critical. Total Critical Care Time excluding procedures was greater than 60 minutes CPR/Code Blue CPR/Code Blue Narrative see code blue sheet for full narrative Intubation Intubation : Consent: Emergent Intubation Method: orotracheal Tube Size (cm): 7.5 Medications: Etomidate Breath Sounds after Intubation: equal Intubation Complications: no complications Post Intubation Xray: No - patient coded/ Attempts: One Patient Tolerated: Well Complications: None Medical Decision Making Diagnostic Impression: Primary Impression: bowel obstruction ER Course I was called to the ICU to evaluate this patient. Hypoxic and hypotensive. Status post surgery for incarcerated hernia. Patient on BiPAP. Hypotensive. Hypoxic. History of PE on heparin drip. I evaluated patient and while on BiPAP patient started to aspirate. We quickly removed BiPAP and started suctioning. RSI meds given and patient intubated using glide scope. Equal breath sounds. Patient became bradycardic then lost pulse to asystole. ACLS started. After multiple rounds of epinephrine and chest compressions patient remains in asystole. Prognosis is poor. Resuscitative efforts terminated. Patient expires. I discussed with sister who is at bedside. Last Vital Signs Date Time Temp Pulse Resp B/P (MAP) Pulse Ox O2 Delivery O2 Flow Rate FiO2 08/22/19 01:15 93 29 94/17 (42) 84 08/22/19 00:00 Bi-pap Venturi Mask 08/22/19 00:00 80 08/22/19 00:00 98.6 08/21/19 22:50 10.0 Status: worsened Disposition: Condition: Referrals: NON PHYSICIAN (PCP) Dante Wright MD Aug 22, 2019 05:32
[2019-08-22] MEDS ORDERED: D5 1/2NS 1,000 ML IV SCH (12:23)
--- NOTE | 2019-08-24 13:28 | Discharge Summary ---
Discharge Summary Discharge Summary _ SUMMARY DATE OF ADMISSION: 08/20/2019 DATE OF EXPIRATION: 08/22/2019 REASON FOR ADMISSION: 59 years old female with past medical history of hypertension, history of PE, diabetes mellitus, presented with complaint of mid-abdominal pain. Patient reported multiple episodes of vomiting for few days. Pain reported as being 5 out of 10 , diffuse throughout the abdomen. She denied chest pain or shortness of breath. Patient reported having double hernia and felt that they were warm and tender to touch at this time. She denied any recent traveling. She denied any rash. She denied fever or chills. Upon evaluation vital signs revealed elevated blood pressure 163/99 , otherwise were stable. Laboratory work-up revealed mild leukocytosis with WBC 11.2, stable hemoglobin ,hematocrit and platelet count. Urinalysis was unremarkable Stable electrolytes and renal parameters. Glucose 159. Troponin negative. EKG revealed sinus rhythm no acute ischemic changes. Stable LFT. CT scan of the abdomen and pelvis demonstrated high-grade small bowel obstruction due to ventral hernia. Colonic diverticulosis without evidence of diverticulitis. Patient received IV fluids and analgesia . Surgeon contacted , and patient admitted for further management. CONSULTANTS: pulmonary Dr. Green surgery Dr. Man [facility] COURSE: Patient was kept n.p.o. and was taken for emergency laparoscopic incarcerated hernia repair. Patient undergone laparoscopic incarcerated ventral hernia repair with mesh, laparoscopic lysis of adhesions, extensive laparoscopic separation of components , posterior separation due to incarcerated ventral hernia high-grade with a small bowel obstruction. Patient tolerated procedure well . Postoperative care provided . Venous duplex bilateral lower extremity revealed no evidence of acute DVT. Chest x-ray showed mild to moderate congestive heart failure. Pain management was addressed as needed. Antiemetic provided as needed. Blood pressure was managed with calcium channel anny. Bowel regimen instituted. Supportive care provided. Patient started on empiric antibiotics. Renal parameters and electrolytes were closely monitored. Electrolytes corrected as needed. Nephrotoxins were avoided. DVT and GI prophylaxis provided. Blood sugar was closely monitored and remained stable. Patient was tachypneic and tachycardic on 08/20 . Venous Doppler bilateral lower extremity was repeated and showed no evidence of DVT. Patient noted to have acute kidney injury on 08/20 ; creatinine up to 2.7. Patient was noted to have a persistent tachycardia and due to history of PE and started on heparin drip Patient noted to have significant tachycardia and hypotension . CODE BLUE was called. Patient was at that time on BiPAP, hypotensive and hypoxic. While still on the BiPAP patient started to aspirate. BiPAP was quickly removed, suctioning provided. Patient subsequently was emergently intubated. However shortly afterwards , patient became bradycardic and then lost pulse to asystole. ACLS protocol initiated. After multiple rounds of medications and chest compressions , patient unfortunately remained in asystole. Resuscitative efforts terminated. Patient was pronounced at 01:38 am on 08/21. Cause of : cardiopulmonary asystolic arrest FINAL DIAGNOSES: Cardiopulmonary arrest Acute respiratory failure, requiring intubation ( during cardiopulmonary arrest ) Incarcerated ventral hernia X 2 with high-grade small bowel obstruction Severe morbid obesity with BMI 55.7 Status post laparoscopic incarcerated ventral hernia repair with mesh and extensive lysis of adhesion Acute kidney injury, most likely due to hypotension and urinary retention Obstructive uropathy Urinary retention Hypertension Hypercholesterolemia History of pulmonary embolism Diabetes mellitus type 2 I have been assigned to dictate discharge summary for this account. I was not involved in the patient's management. Krista Keating NP Aug 24, 2019 13:28
== END 2019-08-22 01:40 | disposition expired | DRG 336 ==
LOC: EMR 06:40 → 3E 08:01 → EDBEDREQ 10:10 → 2E 08-21 21:03 → ICU 08-21 22:20
PROC: 0WUF4JZ Supplement Abdominal Wall with Synthetic Substitute, Percutaneous Endoscopic Approach (ICD-10-PCS; principal; 2019-08-20 15:30)
PROC: 0DN84ZZ Release Small Intestine, Percutaneous Endoscopic Approach (ICD-10-PCS; principal; 2019-08-20 15:30)
PROC: 5A09357 Assistance with Respiratory Ventilation, Less than 24 Consecutive Hours, Continuous Positive Airway Pressure (ICD-10-PCS; 2019-08-21)
PROC: 0BH17EZ Insertion of Endotracheal Airway into Trachea, Via Natural or Artificial Opening (ICD-10-PCS; 2019-08-22)
DX: K43.6 Other and unspecified ventral hernia with obstruction, without gangrene (principal); N17.9 Acute kidney failure, unspecified; Z68.43 Body mass index [BMI] 50.0-59.9, adult; Z88.6 Allergy status to analgesic agent; I10 Essential (primary) hypertension; I95.9 Hypotension, unspecified; Z86.711 Personal history of pulmonary embolism; E11.9 Type 2 diabetes mellitus without complications; E78.00 Pure hypercholesterolemia, unspecified; E66.01 Morbid (severe) obesity due to excess calories; K66.0 Peritoneal adhesions (postprocedural) (postinfection); R09.02 Hypoxemia; R00.0 Tachycardia, unspecified; K57.90 Diverticulosis of intestine, part unspecified, without perforation or abscess without bleeding; D25.9 Leiomyoma of uterus, unspecified; R33.9 Retention of urine, unspecified
CPT/HCPCS: 36415; 71045; 74176; 80053; 81003; 82150; 82962; 83690; 83735; 84100; 84484; 85025; 85610; 85651; 85730; 86140; 92950; 93005; 93970; 94003; 94150; 94640; 94664; 96374; 96375; 99285; J2250; J2405; J2710; J2765; J7030; J7620; J8499